=== PATIENT | female | born 1935 | race Caucasian/White ===

== ENCOUNTER 2019-09-25 16:36 | Emergency (ER) | payer MEDICAID, SELFPAY | END 2019-09-25 20:52 | disposition admitted as inpatient to this hospital (09) | LOC: ER 10-20 15:43 | PROVIDERS: Emergency Provider Emergency Medicine; Family Provider Nurse Practitioner; PCP Nurse Practitioner | DX: J96.90 Respiratory failure, unspecified, unspecified whether with hypoxia or hypercapnia (principal); R41.82 Altered mental status, unspecified; E03.5 Myxedema coma; I50.9 Heart failure, unspecified; R00.1 Bradycardia, unspecified; I11.0 Hypertensive heart disease with heart failure; E03.9 Hypothyroidism, unspecified | CPT/HCPCS: 12345; 36415; 36416; 36600; 51702; 70450; 71045; 74176; 80053; 80307; 81001; 82009; 82140; 82550; 82803; 82962; 83605; 83735; 83880; 84443; 84484; 85025; 85610; 86850; 86900; 86920; 87040; 87077; 87086; 87186; 87804; 93005; 94002; 94799; 96365; 96366; 96367; 96375; 99284; 99291; J2543; J7030 ==

== ENCOUNTER 2019-09-25 16:36 | Inpatient (IN) | payer MEDICAID, SELFPAY ==
[2019-09-25] VITALS (38 sets, daily range): BP systolic 78–224; BP diastolic 49–102; PULSE 52–66; RESP 0–21; TEMP 33.4–34.9; O2SAT 89–100; BMI 39.8
--- NOTE | 2019-09-25 16:38 | ECG_ITS ---
Measurements Intervals [place] Rate: 59 P: 107 IN: 184 QRS: 18 QRSD: 106 T: 48 QT: 431 QTc: 429 SINUS BRADYCARDIA No previous ECG available for comparison Electronically Signed On 09-25-2019 17:00:07 [email or web address] by Elias Lomax M.D. [email or web address]
--- NOTE | 2019-09-25 16:38 | ED_ITS ---
Entered by Virgie Camarillo, acting as scribe for HPI - SOB/Dyspnea General: Chief Complaint: Shortness of Breath/Dyspnea Stated Complaint: resp distress Time Seen by Provider: 09/25/19 16:37 Source: EMS Mode of arrival: EMS Limitations: altered mental status History of Present Illness: HPI Narrative: 84 yo Female presents to ED with complaint of respiratory distress. Per EMS, when they arrived to the patient's home, the family reported that the patient has become increasingly short of breath and has had decreased mental status. Family reported to EMS that the patient has a history of CHF but not any other pulmonary history. Per EMS, patient's oxygen saturation was in the 70s on their arrival. EMS reports they were able to get the patient's oxygen saturation up into the 80s with breathing treatments but then the patient became apneic. EMS states that the patient was then intubated and her oxygen saturation came up to 94%. Pt is unresponsive and intubated in the ED upon her arrival. Pt's sister states that patient had polio as a kid, she broke her knee cap several years ago, has hypertension and takes medication for it, never had heart attack, angioplasty, or cardiac stents. Pt's sister states that the patient was feeling good yesterday, but today the patient started having increased difficulty breathing and started having decreased responsiveness. Pt's sister states that patient wouldn't want to be intubated shelter. Pt's family is agreeable to allowing treatment for a few days and then re-evaluation of treatment plan. MD elicited complaint: shortness of breath Pertinent past history: congestive heart failure Onset (ago): unknown Timing: progressively worsening Known history of: congestive heart failure Review of Systems General: Reports: ROS unobtainable due to medical condition and ROS unobtainable due to mental status Resp: Reports: shortness of breath and other (intubated) [facility] ED PFSH: Medical History (Updated 09/25/19 @ 21:12 by Kristan Kelly) CHF (congestive heart failure) HTN (hypertension) Hypothyroidism Immobility Surgical History (Updated 09/25/19 @ 20:52 by Gennaro Palumbo MD) H/O knee surgery Family History (Updated 09/25/19 @ 20:54 by Gennaro Palumbo MD) Denies family history of CAD (coronary artery disease) Bleeding disorder Social History (Updated 09/25/19 @ 20:54 by Gennaro Palumbo MD) Smoking and tobacco status: never smoked Alcohol intake: never Substance/Drug Use: never Household members: family Physical Exam Const: COMMON NORMALS: no limitations, healthy appearing and well nourished; apparent distress and negative for oriented x3 EXAM LIMITATIONS: altered mental status GENERAL APPEARANCE: in distress (respiratory distress), lethargic and patient mechanically ventilated NUTRITIONAL APPEARANCE: obese ORIENTATION/CONSCIOUSNESS: Yes lethargic HENMT: COMMON NORMALS: normocephalic, head/scalp atraumatic, hearing grossly normal bilaterally, external ears normal, EAC's normal, external nose normal and moist oral mucous membranes HEAD & SCALP: normal to inspection, normocephalic and atraumatic FACE & SINUS: normal facial exam and face symmetric NOSE: external nose normal and nares normal EXTERNAL EAR: Yes external ears normal EXTERNAL AUDITORY CANAL: EAC's normal MOUTH: oral and palatal mucosa normal and tongue normal Eye: COMMON NORMALS: PERRL, EOMs intact bilaterally, conjunctivae normal and no scleral icterus GENERAL EYE: normal appearance of both eyes and normal light reflex CONJUNCTIVA: Yes conjunctivae normal SCLERA: sclerae normal CORNEA: Yes corneas normal PUPIL: Yes PERRL DIRECT OPHTHALMOSCOPY: Yes normal light reflex Neck/C-Spine: COMMON NORMALS: full ROM, no lymphadenopathy, supple, no meningeal signs and no JVD GENERAL: Yes normal visual inspection and Yes trachea midline CERVICAL SPINE: Yes cervical ROM normal Chest: COMMONS NORMALS: inspection of chest normal and palpation of chest normal Resp: COMMON NORMALS: normal respiratory effort, no retractions, no use of accessory muscles and clear to auscultation bilaterally EFFORT & INSPECTION: Yes respiratory distress AUSCULTATION: clear to auscultation bilaterally Cardio: COMMON NORMALS: no JVD, regular rate, regular rhythm, S1 normal heart sound, S2 normal heart sound, no gallops, no clicks, no murmurs and no rub JUGULAR VENOUS DISTENTION: no JVD RATE: regular rate RHYTHM: regular rhythm HEART SOUNDS: S1 normal and S2 normal GI: COMMON NORMALS: soft to palpation, non-tender, no hepatosplenomegaly and no masses INSPECTION: Yes normal to inspection PALPATION: Yes soft and Yes no hepatosplenomegaly : COMMON NORMALS: Yes no CVA tenderness BLADDER/KIDNEY EXAM: Yes no CVA tenderness Back/Pelvis: COMMON NORMALS: no CVA tenderness, thoracic and lumbar spine normal to inspection, no thoracic nor lumbar tenderness and thoraco-lumbar ROM normal Extremity: COMMON NORMALS: normal to inspection, full ROM, normal capillary refill, no joint enlargement, no clubbing, cyanosis or edema and no calf tenderness Neuro: COMMON NORMALS: CN's II-XII intact bilaterally, moves all extremities, no focal motor deficits and no sensory deficits noted; negative for oriented x3 SENSORIUM/ORIENTATION: Yes lethargic MENINGEAL S IGNS: Yes no meningeal signs Psych: COMMON NORMALS: mental status grossly normal, thought process normal, cooperative, affect normal, speech normal and activity/motor behavior normal SPEECH: Yes normal speech THOUGHT PROCESS: normal thought process Skin: COMMON NORMALS: no rashes or lesions noted, skin turgor normal, no jaundice, no petechiae and no mottling GENERAL SKIN EXAM: no rashes or lesions noted and turgor normal Course Vital Signs: Vital signs: Vital Signs Temperature 92.2 F L 09/25/19 20:56 Pulse Rate 56 L 09/25/19 20:56 Respiratory Rate 16 09/25/19 20:56 Blood Pressure 137/77 09/25/19 20:56 Pulse Oximetry 92 09/25/19 20:56 MDM - SOB/Dyspnea MDM Narrative: Medical decision making narrative: Ms. Parada is an 84-year-old female who arrived intubated after EMS found her to be apneic at times. Her Sister Liam coy has arrived and was unable to provide much more history other than the patient has a history of polio and hypertension. She believes she was fine and in her normal state of health yesterday. Today she reports the patient wanted to sleep more and was lethargic and was having difficulty breathing. The patient lives with her other sister but the sister who is here was able to give this report. Patient is hypothermic and appears to have a GI bleed. We will transfuse her with 2 units of packed red cells here. I have covered her for sepsis with antibiotics and we are continuing to give her warmed IV fluids to help with her hypothermia and hypernatremia. I believe the patient's prognosis is poor but at this time the family did want to do everything although they will discuss this as they do not think she would want to be on the ventilator for prolonged period of time. The case was discussed with Dr. Palumbo and he is agreeable to admission to the ICU. Lab Data: Attestation: I reviewed the patient's lab results. Labs: Lab Results 09/25/19 09/25/19 09/25/19 Range/Units 16:57 16:57 16:57 WBC 6.7 (4.0-10.0) 10^3/ uL RBC 2.92 L (4.1-5.3) 10^6/u L Hgb 7.3 L (11.5-15.3) g/dL Hct 27.7 L (37.0-47.0) % MCV 94.9 (81-99) fL MCH 25.0 L (28.0-34.0) pg MCHC 26.4 L (30.0-36.0) g/dL RDW 17.1 H (12.1-15.1) % Plt Count 121 L (130-400) 10^3/c mm MPV 12.9 H (7.4-10.4) fL Neut % (Auto) 89.0 % Lymph % (Auto) 7.2 % [place] % (Auto) 3.3 % Eos % (Auto) 0.0 % Baso % (Auto) 0.1 % Neut # (Auto) 6.0 (1.8-7.7) 10^3/u L Lymph # (Auto) 0.5 L (0.8-4.8) 10^3/u L [place] # (Auto) 0.2 (0.2-0.9) 10^3/u L Eos # (Auto) 0.0 (0.0-0.8) 10^3/u L Baso # (Auto) 0.0 (0.0-0.1) 10^3/u L Nucleated RBC % (a uto) 0.3 % Nucleated RBCs # 0.0 /100WBC PT 15.70 H (10.5-13.3) SECO NDS INR 1.21 H (0.8-1.2) Specimen Type Sample Site ABG pH (7.35-7.45) ABG pCO2 (35-45) mmHg ABG pO2 (80.0-100.0) mmH g ABG HCO3 (22-26) mmol/L ABG Base Excess (-2.0-2.0) mmol/ L Ricardo Test Hematocrit (37-47) % Respiration Rate % O2 Delivery Device Mechanical Rate FiO2 % Tidal Volume PEEP cmH20 Bulk Sugar Handler ID Sodium 150 H (136-145) mmol/L Potassium 4.6 (3.5-5.1) mmol/L Chloride 113 H (98-107) mmol/L Carbon Dioxide 24 (22-29) mmol/L Anion Gap 17.6 (5-19) BUN 48 H (8-23) mg/dL Creatinine 1.9 H (0.5-0.9) mg/dL Glucose 125 H (65-115) mg/dL Lactic Acid (0.5-2.2) mmol/L Calcium 8.6 (8.5-10.5) mg/dL Magnesium 2.6 H (1.7-2.3) mg/dL Total Bilirubin 0.2 (0.15-1.2) mg/dL AST 17 (0-32) U/L ALT 15 (0-33) U/L Alkaline Phosphata se 96 (35-105) IU/L Ammonia (11-51) umol/L Creatine Kinase (26-192) U/L Troponin T Baselin e (0-10) ng/mL Troponin T 120 Min squaxin (0-10) ng/mL Delta Troponin T (0-10) ABS# NT-Pro-B Natriuret Pep 2259 H (0-450) pg/mL Total Protein 4.9 L (6.6-8.7) g/dL Albumin 2.6 L (3.5-5.2) g/dL Globulin 2.3 (1.3-4.6) g/dL TSH (0.27-4.20) uIU/ mL Urine Color (Yellow) Urine Appearance (CLEAR) Urine pH (5-7) Ur Specific Gravit y (1.005-1.030) Urine Protein (Negative) Urine Glucose (UA) (Normal) Urine Ketones (Negative) Urine Blood (Negative) Urine Nitrate (Negative) Urine Bilirubin (NEGATIVE) Urine Urobilinogen (Negative) mg/dL Ur Leukocyte Leandra ase (Negative) Urine RBC (0-2) /hpf Urine WBC (0-5) /hpf Ur Squamous Epith Cells (0-5) Urine Bacteria (NONE) Urine Mucus Ethyl Alcohol (0-10) mg/dL Serum Ketones (Negative) Influenza Type A A g (Negative) POC Influenza B Ag (Negative) Blood Type Rho(D) Type Antibody Screen Crossmatch 09/25/19 09/25/19 09/25/19 Range/Units 16:57 16:58 17:24 WBC (4.0-10.0) 10^3/ uL RBC (4.1-5.3) 10^6/u L Hgb (11.5-15.3) g/dL Hct (37.0-47.0) % MCV (81-99) fL MCH (28.0-34.0) pg MCHC (30.0-36.0) g/dL RDW (12.1-15.1) % Plt Count (130-400) 10^3/c mm MPV (7.4-10.4) fL Neut % (Auto) % Lymph % (Auto) % [place] % (Auto) % Eos % (Auto) % Baso % (Auto) % Neut # (Auto) (1.8-7.7) 10^3/u L Lymph # (Auto) (0.8-4.8) 10^3/u L [place] # (Auto) (0.2-0.9) 10^3/u L Eos # (Auto) (0.0-0.8) 10^3/u L Baso # (Auto) (0.0-0.1) 10^3/u L Nucleated RBC % (a uto) % Nucleated RBCs # /100WBC PT (10.5-13.3) SECO NDS INR (0.8-1.2) Specimen Type Sample Site ABG pH (7.35-7.45) ABG pCO2 (35-45) mmHg ABG pO2 (80.0-100.0) mmH g ABG HCO3 (22-26) mmol/L ABG Base Excess (-2.0-2.0) mmol/ L Ricardo Test Hematocrit (37-47) % Respiration Rate % O2 Delivery Device Mechanical Rate FiO2 % Tidal Volume PEEP cmH20 Bulk Sugar Handler ID Sodium (136-145) mmol/L Potassium (3.5-5.1) mmol/L Chloride (98-107) mmol/L Carbon Dioxide (22-29) mmol/L Anion Gap (5-19) BUN (8-23) mg/dL Creatinine (0.5-0.9) mg/dL Glucose (65-115) mg/dL Lactic Acid 1.1 (0.5-2.2) mmol/L Calcium (8.5-10.5) mg/dL Magnesium (1.7-2.3) mg/dL Total Bilirubin (0.15-1.2) mg/dL AST (0-32) U/L ALT (0-33) U/L Alkaline Phosphata se (35-105) IU/L Ammonia (11-51) umol/L Creatine Kinase (26-192) U/L Troponin T Baselin e 85 H (0-10) ng/mL Troponin T 120 Min squaxin (0-10) ng/mL Delta Troponin T (0-10) ABS# NT-Pro-B Natriuret Pep (0-450) pg/mL Total Protein (6.6-8.7) g/dL Albumin (3.5-5.2) g/dL Globulin (1.3-4.6) g/dL TSH (0.27-4.20) uIU/ mL Urine Color (Yellow) Urine Appearance (CLEAR) Urine pH (5-7) Ur Specific Gravit y (1.005-1.030) Urine Protein (Negative) Urine Glucose (UA) (Normal) Urine Ketones (Negative) Urine Blood (Negative) Urine Nitrate (Negative) Urine Bilirubin (NEGATIVE) Urine Urobilinogen (Negative) mg/dL Ur Leukocyte Leandra ase (Negative) Urine RBC (0-2) /hpf Urine WBC (0-5) /hpf Ur Squamous Epith Cells (0-5) Urine Bacteria (NONE) Urine Mucus Ethyl Alcohol (0-10) mg/dL Serum Ketones (Negative) Influenza Type A A g Negative (Negative) POC Influenza B Ag Negative (Negative) Blood Type Rho(D) Type Antibody Screen Crossmatch 09/25/19 09/25/19 09/25/19 Range/Units 17:24 17:29 18:41 WBC (4.0-10.0) 10^3/ uL RBC (4.1-5.3) 10^6/u L Hgb (11.5-15.3) g/dL Hct (37.0-47.0) % MCV (81-99) fL MCH (28.0-34.0) pg MCHC (30.0-36.0) g/dL RDW (12.1-15.1) % Plt Count (130-400) 10^3/c mm MPV (7.4-10.4) fL Neut % (Auto) % Lymph % (Auto) % [place] % (Auto) % Eos % (Auto) % Baso % (Auto) % Neut # (Auto) (1.8-7.7) 10^3/u L Lymph # (Auto) (0.8-4.8) 10^3/u L [place] # (Auto) (0.2-0.9) 10^3/u L Eos # (Auto) (0.0-0.8) 10^3/u L Baso # (Auto) (0.0-0.1) 10^3/u L Nucleated RBC % (a uto) % Nucleated RBCs # /100WBC PT (10.5-13.3) SECO NDS INR (0.8-1.2) Specimen Type Sample Site ABG pH (7.35-7.45) ABG pCO2 (35-45) mmHg ABG pO2 (80.0-100.0) mmH g ABG HCO3 (22-26) mmol/L ABG Base Excess (-2.0-2.0) mmol/ L Ricardo Test Hematocrit (37-47) % Respiration Rate % O2 Delivery Device Mechanical Rate FiO2 % Tidal Volume PEEP cmH20 Bulk Sugar Handler ID Sodium (136-145) mmol/L Potassium (3.5-5.1) mmol/L Chloride (98-107) mmol/L Carbon Dioxide (22-29) mmol/L Anion Gap (5-19) BUN (8-23) mg/dL Creatinine (0.5-0.9) mg/dL Glucose (65-115) mg/dL Lactic Acid (0.5-2.2) mmol/L Calcium (8.5-10.5) mg/dL Magnesium (1.7-2.3) mg/dL Total Bilirubin (0.15-1.2) mg/dL AST (0-32) U/L ALT (0-33) U/L Alkaline Phosphata se (35-105) IU/L Ammonia (11-51) umol/L Creatine Kinase (26-192) U/L Troponin T Baselin e (0-10) ng/mL Troponin T 120 Min squaxin 79.01 H (0-10) ng/mL Delta Troponin T -5.99 L (0-10) ABS# NT-Pro-B Natriuret Pep (0-450) pg/mL Total Protein (6.6-8.7) g/dL Albumin (3.5-5.2) g/dL Globulin (1.3-4.6) g/dL TSH (0.27-4.20) uIU/ mL Urine Color Yellow (Yellow) Urine Appearance Clear (CLEAR) Urine pH 5.0 (5-7) Ur Specific Gravit y 1.020 (1.005-1.030) Urine Protein Neg (Negative) Urine Glucose (UA) Norm (Normal) Urine Ketones Negative (Negative) Urine Blood Neg (Negative) Urine Nitrate Negative (Negative) Urine Bilirubin Neg (NEGATIVE) Urine Urobilinogen Norm (Negative) mg/dL Ur Leukocyte Leandra ase Negative (Negative) Urine RBC None (0-2) /hpf Urine WBC 0-4 H (0-5) /hpf Ur Squamous Epith Cells 0-4 H (0-5) Urine Bacteria 3+ H (NONE) Urine Mucus 1+ Ethyl Alcohol (0-10) mg/dL Serum Ketones (Negative) Influenza Type A A g (Negative) POC Influenza B Ag (Negative) Blood Type O Positive Rho(D) Type Positive Antibody Screen Negative Crossmatch See Detail 09/25/19 09/25/19 09/25/19 Range/Units 19:04 19:28 19:28 WBC (4.0-10.0) 10^3/ uL RBC (4.1-5.3) 10^6/u L Hgb (11.5-15.3) g/dL Hct (37.0-47.0) % MCV (81-99) fL MCH (28.0-34.0) pg MCHC (30.0-36.0) g/dL RDW (12.1-15.1) % Plt Count (130-400) 10^3/c mm MPV (7.4-10.4) fL Neut % (Auto) % Lymph % (Auto) % [place] % (Auto) % Eos % (Auto) % Baso % (Auto) % Neut # (Auto) (1.8-7.7) 10^3/u L Lymph # (Auto) (0.8-4.8) 10^3/u L [place] # (Auto) (0.2-0.9) 10^3/u L Eos # (Auto) (0.0-0.8) 10^3/u L Baso # (Auto) (0.0-0.1) 10^3/u L Nucleated RBC % (a uto) % Nucleated RBCs # /100WBC PT (10.5-13.3) SECO NDS INR (0.8-1.2) Specimen Type Arterial Sample Site Radial, right ABG pH 7.42 (7.35-7.45) ABG pCO2 32.7 L (35-45) mmHg ABG pO2 119.0 H (80.0-100.0) mmH g ABG HCO3 21.1 L (22-26) mmol/L ABG Base Excess -3.0 L (-2.0-2.0) mmol/ L Ricardo Test N/a Hematocrit 23.3 L (37-47) % Respiration Rate 16.0 % O2 Delivery Device Vent Mechanical Rate 16.0 FiO2 100.0 % Tidal Volume 0.4 PEEP 8.0 cmH20 Bulk Sugar Handler ID [email or web address] Sodium (136-145) mmol/L Potassium (3.5-5.1) mmol/L Chloride (98-107) mmol/L Carbon Dioxide (22-29) mmol/L Anion Gap (5-19) BUN (8-23) mg/dL Creatinine (0.5-0.9) mg/dL Glucose (65-115) mg/dL Lactic Acid (0.5-2.2) mmol/L Calcium (8.5-10.5) mg/dL Magnesium (1.7-2.3) mg/dL Total Bilirubin (0.15-1.2) mg/dL AST (0-32) U/L ALT (0-33) U/L Alkaline Phosphata se (35-105) IU/L Ammonia 10 L (11-51) umol/L Creatine Kinase (26-192) U/L Troponin T Baselin e (0-10) ng/mL Troponin T 120 Min squaxin (0-10) ng/mL Delta Troponin T (0-10) ABS# NT-Pro-B Natriuret Pep (0-450) pg/mL Total Protein (6.6-8.7) g/dL Albumin (3.5-5.2) g/dL Globulin (1.3-4.6) g/dL TSH (0.27-4.20) uIU/ mL Urine Color (Yellow) Urine Appearance (CLEAR) Urine pH (5-7) Ur Specific Gravit y (1.005-1.030) Urine Protein (Negative) Urine Glucose (UA) (Normal) Urine Ketones (Negative) Urine Blood (Negative) Urine Nitrate (Negative) Urine Bilirubin (NEGATIVE) Urine Urobilinogen (Negative) mg/dL Ur Leukocyte Leandra ase (Negative) Urine RBC (0-2) /hpf Urine WBC (0-5) /hpf Ur Squamous Epith Cells (0-5) Urine Bacteria (NONE) Urine Mucus Ethyl Alcohol (0-10) mg/dL Serum Ketones Negative (Negative) Influenza Type A A g (Negative) POC Influenza B Ag (Negative) Blood Type Rho(D) Type Antibody Screen Crossmatch 09/25/19 Range/Units 19:28 WBC (4.0-10.0) 10^3/ uL RBC (4.1-5.3) 10^6/u L Hgb (11.5-15.3) g/dL Hct (37.0-47.0) % MCV (81-99) fL MCH (28.0-34.0) pg MCHC (30.0-36.0) g/dL RDW (12.1-15.1) % Plt Count (130-400) 10^3/c mm MPV (7.4-10.4) fL Neut % (Auto) % Lymph % (Auto) % [place] % (Auto) % Eos % (Auto) % Baso % (Auto) % Neut # (Auto) (1.8-7.7) 10^3/u L Lymph # (Auto) (0.8-4.8) 10^3/u L [place] # (Auto) (0.2-0.9) 10^3/u L Eos # (Auto) (0.0-0.8) 10^3/u L Baso # (Auto) (0.0-0.1) 10^3/u L Nucleated RBC % (a uto) % Nucleated RBCs # /100WBC PT (10.5-13.3) SECO NDS INR (0.8-1.2) Specimen Type Sample Site ABG pH (7.35-7.45) ABG pCO2 (35-45) mmHg ABG pO2 (80.0-100.0) mmH g ABG HCO3 (22-26) mmol/L ABG Base Excess (-2.0-2.0) mmol/ L Ricardo Test Hematocrit (37-47) % Respiration Rate % O2 Delivery Device Mechanical Rate FiO2 % Tidal Volume PEEP cmH20 Bulk Sugar Handler ID Sodium (136-145) mmol/L Potassium (3.5-5.1) mmol/L Chloride (98-107) mmol/L Carbon Dioxide (22-29) mmol/L Anion Gap (5-19) BUN (8-23) mg/dL Creatinine (0.5-0.9) mg/dL Glucose (65-115) mg/dL Lactic Acid (0.5-2.2) mmol/L Calcium (8.5-10.5) mg/dL Magnesium (1.7-2.3) mg/dL Total Bilirubin (0.15-1.2) mg/dL AST (0-32) U/L ALT (0-33) U/L Alkaline Phosphata se (35-105) IU/L Ammonia (11-51) umol/L Creatine Kinase 27 (26-192) U/L Troponin T Baselin e (0-10) ng/mL Troponin T 120 Min squaxin (0-10) ng/mL Delta Troponin T (0-10) ABS# NT-Pro-B Natriuret Pep (0-450) pg/mL Total Protein (6.6-8.7) g/dL Albumin (3.5-5.2) g/dL Globulin (1.3-4.6) g/dL TSH 8.84 H (0.27-4.20) uIU/ mL Urine Color (Yellow) Urine Appearance (CLEAR) Urine pH (5-7) Ur Specific Gravit y (1.005-1.030) Urine Protein (Negative) Urine Glucose (UA) (Normal) Urine Ketones (Negative) Urine Blood (Negative) Urine Nitrate (Negative) Urine Bilirubin (NEGATIVE) Urine Urobilinogen (Negative) mg/dL Ur Leukocyte Leandra ase (Negative) Urine RBC (0-2) /hpf Urine WBC (0-5) /hpf Ur Squamous Epith Cells (0-5) Urine Bacteria (NONE) Urine Mucus Ethyl Alcohol < 10 (0-10) mg/dL Serum Ketones (Negative) Influenza Type A A g (Negative) POC Influenza B Ag (Negative) Blood Type Rho(D) Type Antibody Screen Crossmatch Imaging Data^: CXR: Radiologist's impression: [place] [address] XRay Report Signed Patient: Merari Parada #: [id number] : 1935cct#:[id number] Age/Sex: 84 / FADM Date: 09/25/19 Loc: ERRoom/Bed: Attending Dr: Ordering Provider/Ordering MD: Kristan Kelly DO Date of Service: 09/25/19 Procedure(s): XR chest 1V portable [id number] Accession Number(s): [id number] Report Number: [id number] WS: [id number] XR chest 1V portable [id number] REASON FOR EXAM: cough FINDINGS: Endotracheal tube remains in good position. This is above the priya. There is mild thickening in the minor fissure on the right. In the left lower lung there appears to be interstitial thickening suggesting inflammatory changes. There is a small amount of right pleural effusion obliterating the costophrenic angle. There is borderline cardiomegaly with arteriosclerotic changes. Both shoulders show severe degenerated changes. XR/XR chest 1V portable [id number] IMPRESSION: Borderline cardiomegaly Infiltrate left lung base Endotracheal tube adequately positioned. Mild thickening of the minor fissure suggesting small amount of effusion. Small amount of right pleural effusion. Dictated By:Roosevelt Calixot DO Signed By:Roosevelt Calixto DOSigned Date/Time:09/25/191655 DD/ 54 CT Abd/Pel: Radiologist's impression: [place] [address] CT Scan Report Signed Patient: Merari Parada #: [id number] : 7Acct#:[id number] Age/Sex: 84 / FADM Date: 09/25/19 Loc: ERRoom/Bed: Attending Dr: Ordering Provider/Ordering MD: Kristan Kelly DO Date of Service: 09/25/19 Procedure(s): CT abdomen pelvis [facility] [address] Accession Number(s): [id number] Report Number: [id number] PROCEDURE INFORMATION: Exam: CT Abdomen And Pelvis Without Contrast Exam date and time: 09/25/2019 6:15 PM Age: 84 years old Clinical indication: Abdominal pain TECHNIQUE: Imaging protocol: Computed tomography of the abdomen and pelvis without contrast. Total DLP: 1223 mGy-cm Radiation optimization: All CT scans at this facility use at least one of these dose optimization techniques: automated exposure control; mA and/or kV adjustment per patient size (includes targeted exams where dose is matched to clinical indication); or iterative reconstruction. COMPARISON: No relevant prior studies available. FINDINGS: Lungs: Bibasilar subsegmental alveolar airspace disease with air bronchograms. This could reflect atelectasis, pneumonia, and/or focal edema. Pleural space: Bilateral small volume pleural effusion. Heart: Cardiomegaly. Calcific mitral annulus. Coronary artery disease. Liver: Liver with a calcified granuloma. Liver otherwise unremarkable for age. Gallbladder and bile ducts: Gallbladder free of cholelithiasis. No intra or extrahepatic biliary ectasia identified. Pancreas: Pancreas unremarkable for age. No visible pancreatic ductal ectasia. Spleen: Normal. No splenomegaly. Adrenals: Adrenal glands, as imaged, grossly unremarkable. Kidneys and ureters: Kidneys unremarkable for age. No hydronephrosis or perinephric fluid visible. Mild perinephric stranding which is nonspecific finding. Stomach and bowel: Nonobstructive bowel pattern. No evidence for significant diverticulosis coli or diverticulitis. No evidence for adynamic or reactive ileus. Nasogastric tube tip body of the stomach. No evidence of appendicitis. Appendix: No evidence of appendicitis. Intraperitoneal space: No ascites. No free fluid the pelvis. No visible pneumoperitoneum. Vasculature: The abdominal aorta is nonaneurysmal. Moderately advanced arterial sclerotic disease. Lymph nodes: Unremarkable. No enlarged lymph nodes. Bladder: Luna catheter within the urinary bladder. Bladder is decompressed. Reproductive: Unremarkable as visualized for age. Bones/joints: Advanced degenerative disease and degenerative disc disease of the distal thoracic and lumbosacral spine. Old compression deformity L3. Osteoporosis. Facet arthrosis. Soft tissues: Unremarkable. Other findings: Limited diagnostic quality. CT/CT abdomen pelvis wo con [id number] IMPRESSION: 1. Bibasilar subsegmental alveolar airspace disease with air bronchograms. 2. Bilateral small pleural effusions. 3. Cardiomegaly with coronary artery disease. 4. No definitive visible evidence of active or acute abdominal or pelvic pathologic process. 5. Nasogastric tube and Luna catheter. 6. Numerous non urgent, nonemergent, chronic, and age related findings discussed in text above. Radiation Dose CTDIVOL = (mGy): DLP = 1223 (mGy-cm) Dictated By:Dl Paige Signed By:Ivon Paige Date/Time:09/25/191855 DD/ 54 CT Head: Radiologist's impression: [place] [address] CT Scan Report Signed Patient: Merari Parada #: [id number] : [id number]#:[id number] Age/Sex: 84 / FADM Date: 09/25/19 Loc: ERRoom/Bed: Attending Dr: Ordering Provider/Ordering MD: Kristan Kelly DO Date of Service: 09/25/19 Procedure(s): CT head wo con* 25930 Accession Number(s): [id number] Report Number: [id number] PROCEDURE INFORMATION: Exam: CT Head Without Contrast Exam date and time: 09/25/2019 4:45 PM Age: 84 years old Clinical indication: Pain; Headache; Additional info: Morales/ams TECHNIQUE: Imaging protocol: Computed tomography of the head without contrast. Total DLP: 764.74 mGy-cm Radiation optimization: All CT scans at this facility use at least one of these dose optimization techniques: automated exposure control; mA and/or kV adjustment per patient size (includes targeted exams where dose is matched to clinical indication); or iterative reconstruction. COMPARISON: No relevant prior studies available. FINDINGS: Brain: No visible evidence of acute intracranial pathologic process. 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 Cerebral and cerebellar atrophy with ventricular dilatation greater than that anticipated for patient's chronological age. Ventricles: Normal. No ventriculomegaly. Bones/joints: Unremarkable. No acute fracture. Sinuses: Visualized sinuses are unremarkable. No fluid levels. Mastoid air cells: Visualized mastoid air cells are well aerated. Soft tissues: Unremarkable. Vasculature: Cerebral arterial sclerosis. CT/CT head wo con* [id number] IMPRESSION: 1. No visible evidence of active or acute intracranial pathologic process. 2. Small vessel ischemic disease. 3. Atrophic changes. Aspects score 10. Radiation Dose CTDIVOL = (mGy): DLP = 764.74 (mGy-cm) Dictated By:Dl Paige Signed By:Dl PaigeSileia Date/Time:09/25/191857 DD/ 56 EKG Data^: EKG 1: Attestation: I personally reviewed and interpreted this EKG as follows: EKG Interpretation Date: 09/25/19 EKG interpretation time: 16:46 Interpretation: Normal sinus rhythm at 59 beats a minute, nonspecific ST and T wave changes, normal axis. No old for comparison EKG 2: Attestation: I personally reviewed and interpreted this EKG as follows: EKG Interpretation Date: 09/25/19 EKG interpretation time: 19:12 Interpretation: Normal sinus rhythm at 56 beats a minute, nonspecific ST-T wave changes. Unchanged from previous. Critical Care Time Critical Care Time: Critical Care Time: Yes Total Critical Care Time: 30 Attestation: Critical care time consisted of discussion with family, repeated re-evaluations of the patient's. Reveal laboratory abnormalities. Management of hypothermia as well as ventilator and blood gas interpretation. Discharge Plan Discharge Patient Disposition: Admitted As Inpatient Admit Provider: Gennaro Palumbo Clinical Impression: Altered mental status, Respiratory failure, Myxedema coma, CHF (congestive heart failure), Bradycardia Condition: Stable Interventions: ED Discharge Assessment Last Done: 09/25/19 20:56 Discharge Date/Time: 09/25/19 20:52 Coding Level of Care Code ED Medicaid Billing Specialist for Chg Fwd Exam Comprehensive The documentation recorded by the Marquise ojeda Carmen, accurately reflects the service I personally performed and the decisions made by me, Kristan Kelly Sep 25, 2019 16:36
[2019-09-25 17:09] LABS: Basophils % 0.1 %; Hematocrit 27.7 % (37.0-47.0); Hemoglobin 7.3 g/dL (11.5-15.3); Lymphocytes # 0.5 10^3/uL (0.8-4.8); Lymphocytes % 7.2 %; Mean Corpuscular HGB Conc 26.4 g/dL (30.0-36.0); Mean Corpuscular Volume 94.9 fL (81-99); Mean Platelet Volume 12.9 fL (7.4-10.4); Monocytes # 0.2 10^3/uL (0.2-0.9); Monocytes % 3.3 %; Nucleated Red Blood Cells % 0.3 %; Platelet Count 121 10^3/cmm (130-400); Red Blood Count 2.92 10^6/uL (4.1-5.3); Red Cell Distribution Width 17.1 % (12.1-15.1); White Blood Count 6.7 10^3/uL (4.0-10.0)
[2019-09-25 17:20] LABS: INR 1.21 (0.8-1.2)
[2019-09-25 17:26] LABS: Lactic Sepsis W/Reflex 1.1 mmol/L (0.5-2.2)
[2019-09-25 17:34] LABS: Troponin(5th) Baseline 85 ng/mL (0-10)
[2019-09-25 17:43] LABS: Alanine Aminotransferase 15 U/L (0-33); Albumin Level 2.6 g/dL (3.5-5.2); Alkaline Phosphatase 96 IU/L (35-105); Anion Gap 17.6 (5-19); Aspartate Amino Transferase 17 U/L (0-32); Blood Urea Nitrogen 48 mg/dL (8-23); Calcium 8.6 mg/dL (8.5-10.5); Carbon Dioxide 24 mmol/L (22-29); Chloride 113 mmol/L (98-107); Globulin 2.3 g/dL (1.3-4.6); Glucose 125 mg/dL (65-115); Magnesium 2.6 mg/dL (1.7-2.3); NT Pro B Type Natriuretic Pept 2259 pg/mL (0-450); Potassium 4.6 mmol/L (3.5-5.1); Sodium 150 mmol/L (136-145); Total Bilirubin 0.2 mg/dL (0.15-1.2); Total Protein 4.9 g/dL (6.6-8.7)
[2019-09-25] MEDS: piperacillin-tazobactam 3.375 GM in sodium chloride 0.9% (plus) 50 ML IV (17:53)
[2019-09-25 18:02] LABS: Bilirubin Urine Neg (NEGATIVE); Blood Urine Neg (Negative); Glucose Urine UA Norm (Normal); Ketones Urine Negative (Negative); Leukocyte Esterase Urine Negative (Negative); Nitrate Urine Negative (Negative); Protein Urine Neg (Negative); Urine Appearance Clear (CLEAR); Urine Color Yellow (Yellow); Urobilinogen Urine Norm (Negative)
[2019-09-25 18:08] LABS: Add Urine Culture? Yes; Bacteria Urine 3+; Mucus Urine 1+; Squamous Epithelial Cell Urine 0-4 (0-5); WBC Urine 0-4 /hpf (0-5)
--- NOTE | 2019-09-25 18:14 | CTR_ITS ---
PROCEDURE INFORMATION: Exam: CT Abdomen And Pelvis Without Contrast Exam date and time: 09/25/2019 6:15 PM Age: 84 years old Clinical indication: Abdominal pain TECHNIQUE: Imaging protocol: Computed tomography of the abdomen and pelvis without contrast. Total DLP: 1223 mGy-cm Radiation optimization: All CT scans at this facility use at least one of these dose optimization techniques: automated exposure control; mA and/or kV adjustment per patient size (includes targeted exams where dose is matched to clinical indication); or iterative reconstruction. COMPARISON: No relevant prior studies available. FINDINGS: Lungs: Bibasilar subsegmental alveolar airspace disease with air bronchograms. This could reflect atelectasis, pneumonia, and/or focal edema. Pleural space: Bilateral small volume pleural effusion. Heart: Cardiomegaly. Calcific mitral annulus. Coronary artery disease. Liver: Liver with a calcified granuloma. Liver otherwise unremarkable for age. Gallbladder and bile ducts: Gallbladder free of cholelithiasis. No intra or extrahepatic biliary ectasia identified. Pancreas: Pancreas unremarkable for age. No visible pancreatic ductal ectasia. Spleen: Normal. No splenomegaly. Adrenals: Adrenal glands, as imaged, grossly unremarkable. Kidneys and ureters: Kidneys unremarkable for age. No hydronephrosis or perinephric fluid visible. Mild perinephric stranding which is nonspecific finding. Stomach and bowel: Nonobstructive bowel pattern. No evidence for significant diverticulosis coli or diverticulitis. No evidence for adynamic or reactive ileus. Nasogastric tube tip body of the stomach. No evidence of appendicitis. Appendix: No evidence of appendicitis. Intraperitoneal space: No ascites. No free fluid the pelvis. No visible pneumoperitoneum. Vasculature: The abdominal aorta is nonaneurysmal. Moderately advanced arterial sclerotic disease. Lymph nodes: Unremarkable. No enlarged lymph nodes. Bladder: Luna catheter within the urinary bladder. Bladder is decompressed. Reproductive: Unremarkable as visualized for age. Bones/joints: Advanced degenerative disease and degenerative disc disease of the distal thoracic and lumbosacral spine. Old compression deformity L3. Osteoporosis. Facet arthrosis. Soft tissues: Unremarkable. Other findings: Limited diagnostic quality. CT/CT abdomen pelvis wo con [id number] IMPRESSION: 1. Bibasilar subsegmental alveolar airspace disease with air bronchograms. 2. Bilateral small pleural effusions. 3. Cardiomegaly with coronary artery disease. 4. No definitive visible evidence of active or acute abdominal or pelvic pathologic process. 5. Nasogastric tube and Luna catheter. 6. Numerous non urgent, nonemergent, chronic, and age related findings discussed in text above. Radiation Dose CTDIVOL = (mGy): DLP = 1223 (mGy-cm)
[2019-09-25 18:18] LABS: Influenza A by IFA Negative (Negative); Influenza B by IFA Negative (Negative)
--- NOTE | 2019-09-25 18:38 | ECG_ITS ---
Measurements Intervals [place] Rate: 56 P: 43 UT: 185 QRS: 31 QRSD: 97 T: -33 QT: 417 QTc: 405 SINUS BRADYCARDIA NONSPECIFIC T-WAVE ABNORMALITY Compared to ECG 09/25/2019 16:46:10 T-wave abnormality now present Electronically Signed On 09-26-2019 15:40:02 BOARD SAW RUNNER by Latasha Singh M.D. [id number]
--- NOTE | 2019-09-25 18:47 | PC.NURSE ---
patients temp remains at 91.1 placed on bearhugger. patient returned from ct
[2019-09-25 19:08] LABS: Troponin 5 2HR 79.01 ng/mL (0-10)
[2019-09-25 19:09] LABS: Troponin 5 2HR Delta -5.99 ABS# (0-10)
[2019-09-25 19:15] LABS: ABG PCO2 32.7 mmHg (35-45); ABG PH Result 7.42 (7.35-7.45); Arterial Blood Gas Hematocrit 23.3 % (37-47); Blood Gas Sample Site Radial, right; Blood Gas Sample Type Arterial; Blood Gas Tidal Volume 0.4; HCO3 ABG 21.1 mmol/L (22-26); Oxygen Device VENT
[2019-09-25 19:53] LABS: Ammonia 10 umol/L (11-51)
[2019-09-25 20:02] LABS: Creatine Phosphokinase 27 U/L (26-192); Thyroid Stimulating Hormone 8.84 uIU/mL (0.27-4.20)
[2019-09-25 20:03] LABS: Alcohol Level < 10 mg/dL (0-10); Ketone (Acetest) Serum Negative (Negative)
--- NOTE | 2019-09-25 20:44 | PM.HP ---
Providers/Chief Complaint Admitting Physician: Gennaro Palumbo MD Primary Care Provider: DELMAR Smith-Liliana Chief Complaint: resp distress History of Present Illness Merari Parada is a 84 year old female who was brought in by the family for chief complaint of shortness of breath, altered mental status. She lives with her younger sister, as per the family she was in her usual state of health until today when she seemed confused and was struggling to breathe at that time EMS was called, because of her respiratory distress she was intubated with ketamine and rocuronium. She was hypothermic temperature 92, sinus bradycardic heart rate 56, hypotensive,. Diagnostics in ER showed hyper natremia, hypotension, hypothermia, normal white count, EKG showed sinus bradycardia, she was given 1 L normal saline bolus that improved her blood pressure, I requested stat TSH level which came back high, considering her signs and symptoms decision was made to treat as myxedema coma, levothyroxine 100 mcg IV, stress dose steroid 100 mg hydrocortisone every 8 hours, T4 and cortisol level to be checked. She also has a purulent cellulitis of right lower extremity. I have talked with her sister Ms. Liam Adams phone #[phone] She is endorsing that she has not been compliant with her medications, she stopped taking her thyroid medications, she was told that she has congestive heart failure. She has been wheelchair-bound for the last couple of months because of bad knees after knee surgery she has not been able to walk on her own, she could not use crutches, Review of Systems General: Reports: ROS unobtainable due to endotracheal tube Medications/Allergies Home Medications Medication Instructions Recorded Confirmed Last Taken Type Dandelion Root 1 tab PO DAILY 09/25/19 09/25/19 Unknown History Vitamin C 1 tab PO DAILY 09/25/19 09/25/19 Unknown History atorvastatin See Rx Instructions .ROUTE .COMPLEX 09/25/19 09/25/19 Unknown History baclofen 10 mg PO BID 09/25/19 09/25/19 Unknown History docusate sodium [DOK] 100 mg PO DAILY PRN 09/25/19 09/25/19 Unknown History furosemide 20 mg PO BID 09/25/19 09/25/19 Unknown History lisinopril 40 mg PO DAILY 09/25/19 09/25/19 09/25/19 History metoprolol tartrate 25 mg PO BID 09/25/19 09/25/19 09/25/19 History potassium chloride 10 meq PO DAILY 09/25/19 09/25/19 09/25/19 History PFSH Acute PFSH: Medical History (Updated 09/25/19 @ 20:52 by Gennaro Palumbo MD) CHF (congestive heart failure) HTN (hypertension) Hypothyroidism Immobility Surgical History (Updated 09/25/19 @ 20:52 by Gennaro Palumbo MD) H/O knee surgery Family History (Updated 09/25/19 @ 20:54 by Gennaro Palumbo MD) Denies family history of CAD (coronary artery disease) Bleeding disorder Social History (Updated 09/25/19 @ 20:54 by Gennaro Palumbo MD) Smoking and tobacco status: never smoked Alcohol intake: never Substance/Drug Use: never Household members: family Vitals/I&O/Wt Last Vital Signs Temp 92.2 F L 09/25/19 20:26 Pulse 55 L 09/25/19 20:26 Resp 16 09/25/19 20:26 BP 137/77 09/25/19 20:26 Pulse Ox 89 L 09/25/19 20:26 09/25/19 09/25/19 09/25/19 06:59 14:59 22:59 Intake Total 3061.74 / 3061.74 Balance 3061.74 / 3061.74 Weight last 48 hrs Weight 102.058 kg Physical Exam Narrative: EXAM NARRATIVE: Cushingoid appearance Macroglossia Pitting edema starting from her legs extending up to her abdominal wall 3+ pitting edema Right lower extremity actively weeping wound with hyperemic border, dressing is soaked with purulent material Sinus bradycardia heart rate in 60s Current blood pressure 113 Intubated and sedated, riding the vent, FiO2 70%, PEEP 8 Swollen arms and legs, swollen eyelids No scar cirilo of thyroidectomy Visual obesity, bloated abdomen Hard to assess her JVD Neurological exam limited because of intubation Urinary Catheter Management^: Luna: Cath Placed During This Visit: yes Urinary Catheter Date of Insertion: 09/25/19 Urinary Catheter Time of Insertion: 17:11 Data : 09/25/19 16:57 09/25/19 16:57 Micro: Microbiology 09/25/19 16:51 Blood Culture - Preliminary Blood SPECIMEN COLLECTED 09/25/19 16:45 Blood Culture - Preliminary Blood SPECIMEN COLLECTED A&P Assessment and plan (1) Myxedema coma: Status: Acute Code(s): E03.5 - Myxedema coma (2) Respiratory failure: Status: Acute Code(s): J96.90 - Respiratory failure, unspecified, unspecified whether with hypoxia or hypercapnia (3) Altered mental status: Status: Acute Code(s): R41.82 - Altered mental status, unspecified (4) CHF (congestive heart failure): Status: Acute Code(s): I50.9 - Heart failure, unspecified (5) Bradycardia: Status: Acute Code(s): R00.1 - Bradycardia, unspecified Additional A&P Information Myxedema coma I believe inciting event is lower GI bleed Clinical signs of sinus bradycardia, hypo-thermia, hypotension, respiratory distress, altered mental status, Blood glucose normal, TSH is 8, will check cortisol and free T4 level IV levothyroxine 100 mcg x 1 with subsequent 50 mcg dose starting tomorrow Stress dose steroids hydrocortisone 100 mg every 8 D5 half-normal fluid with sodium every 4 hour check Congestive heart failure exacerbation due to hypothyroidism We will check echo, extremely high BNP Cannot use Lasix for now because of hypotension No previous echo report Acute blood loss normocytic anemia Previous hemoglobin was around 13 current hemoglobin 7, FOBT positive dark-colored stool I have consulted Dr. Rascon, will monitor H&H, will start Protonix drip will give her 2 units of PRBC Lactic acid 1.1 CT abdomen did not show any signs of ischemic colitis but definitive diagnosis was made on colonoscopy Right lower leg purulent cellulitis I would start vancomycin and Zosyn, no leukocytosis Full code No need of anticoagulation for DVT prophylaxis: We will use SCDs For details regarding medical history please call primary care physician in the morning, I have talked with her sister who is endorsing that she stopped taking her thyroid medication because she thought she is not needing it anymore however review of previous records shows her TSH has been abnormal it was 7.8 and then 5.4, she was told that she has CHF but type is unknown Attestations Medical Necessity Statement*: Needs ICU care for myxedema coma, she is critical Time Spent in Patient Care: 50 Critical Care Time: Critical Care Time (min): 30 Coding Level of Care Code Acute Smog Technician for Chg Fwd Diagnoses Myxedema coma E03.5 Respiratory failure J96.90 Altered mental status R41.82 CHF (congestive heart failure) I50.9 Bradycardia R00.1
--- NOTE | 2019-09-25 20:57 | PC.NURSE ---
Patient taken to icu with resp on vent. Report given to Glo PENG.
--- NOTE | 2019-09-25 21:17 | PC.PHAR ---
Creatinine clearance s 26.0422. Vancomycin is dosed at 750mg IVPB every 24 hours to produce a predicted trough level of 17.23 (population based pharmacokinetic analysis). A trough level has been ordered to be collected before the fourth dose to confirm and adjust if needed. Zosyn is dosed at 3.375gm IVPB every 8 hours each dose to be administered over 4 hours per extended infusion protocol.
[2019-09-25] MEDS: sodium chloride 0.9% 100 ML 10 ML (21:27)
[2019-09-25 21:50] LABS: Glucose Point of Care 153 mg/dL (70-110)
--- NOTE | 2019-09-25 22:00 | PC.NURSE ---
PT CAME TO ICU FROM [facility] RN GAVE BEDSIDE REPORT. UPON ASSESSMENT, NO MOVEMENT BY PATIENT, PUPILS ARE REACTIVE. PT HAS NO STIMULI WHEN MOVING OR ROLLING. PT HAS NO SEDATION CURRENTLY OR RESTRAINTS.
[2019-09-25 22:03] LABS: Free T4 Free Thyroxine 1.16 ng/dL (0.82-1.77)
--- NOTE | 2019-09-25 22:03 | PC.NURSE ---
PLACED BY ER NURSE PRIOR TO ICU ADMISSION
[2019-09-25 22:20] LABS: Sodium 150 mmol/L (136-145); Troponin 5 6HR 74.94 ng/mL (0-10)
[2019-09-25 22:33] LABS: Cortisol Random 41.06 mcg/dL (2.47-19.5)
--- NOTE | 2019-09-25 22:38 | ECG_ITS ---
Measurements Intervals [place] Rate: 56 P: 53 SD: 181 QRS: 49 QRSD: 104 T: 34 QT: 446 QTc: 433 SINUS BRADYCARDIA Compared to ECG 09/25/2019 16:46:10 No significant changes Electronically Signed On 09-26-2019 15:41:12 PRE PRESS PROOFER by Latasha Singh M.D. [id number]
[2019-09-25] MEDS: FUROsemide 10 mg/mL SDV 4mL 40 MG IVP (23:11)
[2019-09-25 23:19] LABS: Glucose Point of Care 141 mg/dL (70-110)
[2019-09-26] VITALS (66 sets, daily range): BP systolic 81–160; BP diastolic 44–121; PULSE 54–81; RESP 14–16; TEMP 36.3–37.8; O2SAT 93–99; BMI 34.2
[2019-09-26] MEDS: sodium chloride 0.9% 100 ML 75 ML (00:04)
[2019-09-26 02:08] LABS: Glucose Point of Care 139 mg/dL (70-110)
[2019-09-26] MEDS: vancomycin 750 MG in sodium chloride 0.9% 250 ML 250 MG IV (02:20)
[2019-09-26] MEDS: hydrocortisone 100 mg/2 mL SDV IVP ×3 (02:31→17:46)
[2019-09-26] MEDS: piperacillin-tazobactam 3.375 GM in sodium chloride 0.9% (plus) 50 ML IV ×3 (04:03→21:12)
[2019-09-26 04:29] LABS: ABG PCO2 36.7 mmHg (35-45); ABG PH Result 7.41 (7.35-7.45); Arterial Blood Gas Hematocrit 39.4 % (37-47); Base Excess ABG -0.9 mmol/L (-2.0-2.0); Blood Gas Allen Test Pos; Blood Gas Sample Site Radial, right; Blood Gas Sample Type Arterial; HCO3 ABG 23.4 mmol/L (22-26); Oxygen Device VENT; PO2 ABG 97.3 mmHg (80.0-100.0)
[2019-09-26 04:56] LABS: Glucose Point of Care 148 mg/dL (70-110)
[2019-09-26 05:04] LABS: Hematocrit 33.3 % (37.0-47.0); Hemoglobin 10.1 g/dL (11.5-15.3); Lymphocytes # 0.4 10^3/uL (0.8-4.8); Lymphocytes % 3.6 %; Mean Corpuscular HGB Conc 30.3 g/dL (30.0-36.0); Mean Corpuscular Hemoglobin 26.1 pg (28.0-34.0); Mean Platelet Volume 12.2 fL (7.4-10.4); Monocytes # 0.3 10^3/uL (0.2-0.9); Monocytes % 3.4 %; Neutrophils # 9.2 10^3/uL (1.8-7.7); Neutrophils % 92.5 %; Nucleated Red Blood Cells # 0.1 /100WBC; Nucleated Red Blood Cells % 0.5 %; Platelet Count 174 10^3/cmm (130-400); Red Blood Count 3.87 10^6/uL (4.1-5.3); Red Cell Distribution Width 16.3 % (12.1-15.1); White Blood Count 9.9 10^3/uL (4.0-10.0)
--- NOTE | 2019-09-26 05:17 | PC.NURSE ---
SHIFT SUMMARY PT HAS REMAINED INTUBATED. PT LUNGS REMAIN COARSE AND CRACKLES, BLOOD PRESSURE RUNNING SOFTER MAP REMAINS ABOVE 65. DR RIVERA AWARE OF BLOOD PRESSURE AND DECREASED URINE OUTPUT. PT IV REMAINS PATENT. PT HAS BEEN TURNED PERIODICALLY, PT TEMPERATURE IS NOW UP TO 100. BEAR HUGGER HAS BEEN OFF FOR A COUPLE OF HOURS NOW. PT IS ABLE TO FOLLOW COMMANDS, SQUEEZE NURSE HANDS, AND OPEN EYES TO COMMAND. PT IS NOT ON ANY SEDATION OR IN ANY RESTRAINTS CURRENTLY.
[2019-09-26 05:25] LABS: Alanine Aminotransferase 18 U/L (0-33); Albumin Level 2.6 g/dL (3.5-5.2); Alkaline Phosphatase 152 IU/L (35-105); Anion Gap 17.5 (5-19); Aspartate Amino Transferase 20 U/L (0-32); Blood Urea Nitrogen 48 mg/dL (8-23); Calcium 8.6 mg/dL (8.5-10.5); Carbon Dioxide 23 mmol/L (22-29); Chloride 115 mmol/L (98-107); Globulin 3.1 g/dL (1.3-4.6); Glucose 127 mg/dL (65-115); Potassium 4.5 mmol/L (3.5-5.1); Sodium 151 mmol/L (136-145); Total Bilirubin 0.5 mg/dL (0.15-1.2); Total Protein 5.7 g/dL (6.6-8.7)
[2019-09-26] MEDS: dextrose 5% 1,000 ML 75 ML IV ×2 (06:27→20:16)
[2019-09-26 07:51] LABS: Glucose Point of Care 129 mg/dL (70-110)
[2019-09-26 09:03] LABS: Glucose Point of Care 130 mg/dL (70-110)
[2019-09-26] MEDS: pantoprazole 40 mg SDV IVP ×2 (09:10→17:46)
--- NOTE | 2019-09-26 09:14 | PM.PN ---
Subjective Subjective: Interval history: She is intubated, on minimal sedation, this morning she wakes up, is interactive and readily follows commands. Denies pain. Breathing on the ventilator currently is comfortable. She has some generalized weakness, and is usually wheelchair-bound, however, is able to move all extremities. Vitals/I&O/Wt Last Vital Signs Temp 100.0 F H 09/26/19 04:45 Pulse 80 09/26/19 06:00 Resp 16 09/26/19 08:36 BP 106/71 09/26/19 06:00 Pulse Ox 96 09/26/19 06:00 09/25/19 09/26/19 09/26/19 22:59 06:59 14:59 Intake Total 3061.74 / 3061.74 950 / 4011.74 Output Total 325 / 325 Balance 3061.74 / 3061.74 625 / 3686.74 Weight last 48 hrs Weight 86.228 kg Weight 102.058 kg Physical Exam Const: COMMON NORMALS: no apparent distress HENMT: COMMON NORMALS: oropharynx normal Neck/C-Spine: COMMON NORMALS: no JVD Resp: COMMON NORMALS: normal respiratory effort AUSCULTATION: rhonchi Cardio: COMMON NORMALS: no JVD, regular rhythm, S1 normal heart sound, S2 normal heart sound and no murmurs RHYTHM: regular rhythm HEART SOUNDS: S1 normal and S2 normal GI: COMMON NORMALS: normal to inspection, nondistended, normoactive bowel sounds, soft to palpation and non-tender PALPATION: Yes soft Extremity: OTHER: Bilateral lower extremity edema below the knees. Bilateral deformity of the feet, as patient is nonambulatory. Neuro: COMMON NORMALS: moves all extremities Skin: RASHES: rashes noted (Right lower extremity anterolateral martin shallow ulceration with granulation tissue, erythema, no purulent discharge.) Urinary Catheter Management^: Luna: Cath Placed During This Visit: yes Urinary Catheter Date of Insertion: 09/25/19 Urinary Catheter Time of Insertion: 17:11 Data : 09/26/19 04:40 09/26/19 04:40 Micro: Microbiology 09/25/19 16:51 Blood Culture - Preliminary Blood SPECIMEN COLLECTED 09/25/19 16:45 Blood Culture - Preliminary Blood SPECIMEN COLLECTED A&P Assessment and plan (1) Myxedema coma: She does admit to not in her thyroid medication. When asked if it was giving her side effects denies, when asked if she was forgetting, does not respond. Not clear reason for why she had stopped at this time. She is awake and alert currently blood pressure is improved. Acute encephalopathy, respiratory failure suspected secondary to myxedema coma, as well as pneumonia, cellulitis. Status: Acute Code(s): E03.5 - Myxedema coma (2) Respiratory failure: Noted to have oral secretions, although only some respiratory secretions. FiO2 40%. PEEP is 10. She is awake alert, blood pressure is better. Weaning trial today, and reattempt as tolerating toward extubation. With pneumonia noted on imaging. She does report having cough. She also reports having cough with drinking water. Request speech therapy assessment after extubation. Status: Acute Qualifiers: Chronicity: acute Respiratory failure complication: hypoxia Qualified Code(s): J96.01 - Acute respiratory failure with hypoxia Code(s): J96.90 - Respiratory failure, unspecified, unspecified whether with hypoxia or hypercapnia (3) Altered mental status: This appears to have improved. Encephalopathy secondary to possible myxedema, as well as pneumonia, cellulitis. Status: Acute Qualifiers: Altered mental status type: coma Coma depth: [place] coma 3-8 Coma timing: in the field (EMT or ambulance) Qualified Code(s): R40.2431 - [place] coma scale score 3-8, in the field [EMT or ambulance] Code(s): R41.82 - Altered mental status, unspecified (4) CHF (congestive heart failure): Pending echocardiogram evaluation. Blood pressure is better. Lasix had been added. Monitor I&O. Status: Acute Qualifiers: Heart failure chronicity: acute Heart failure type: unspecified Qualified Code(s): I50.9 - Heart failure, unspecified Code(s): I50.9 - Heart failure, unspecified (5) Bradycardia: Heart rate improved. Currently in the 70s. Status: Acute Code(s): R00.1 - Bradycardia, unspecified Additional A&P Information Acute anemia: Possible chronic disease with hypothyroidism. But also Hemoccult positive. Surgery was consulted. Appreciate recommendations. Received 2 units previous transfusion. Continue PPI. RLE cellulitis: continue antibiotic. Attestations Medical Necessity Statement*: Continue admission for close management of A. fib, acute encephalopathy, myxedema, CHF exacerbation. In addition to noncritical issues 15 minutes critical care time spent on assessment of hemodynamic status, respiratory status, conditions contributing to hypotension, hypoxia, evaluation of respiratory support, readiness for extubation. Coding Level of Care Code Acute Loss Prevention Lead for g Fwd Diagnoses Myxedema coma E03.5 Respiratory failure J96.01 Chronicity: acute Respiratory failure complication: hypoxia Altered mental status R40.2431 Altered mental status type: coma Coma depth: [place] coma 3-8 Coma timing: in the field (EMT or ambulance) CHF (congestive heart failure) I50.9 Heart failure chronicity: acute Heart failure type: unspecified Bradycardia R00.1
[2019-09-26 10:52] LABS: Sodium 148 mmol/L (136-145)
[2019-09-26 11:55] LABS: Glucose Point of Care 136 mg/dL (70-110)
--- NOTE | 2019-09-26 15:01 | PM.CONSULT ---
Providers/Reason For Consult Consulting Physican/Specialty*: Gilmar Pineda Reason for Consult*: Anemia Attending Physician: Gilmar Pineda Primary Care Provider: DORA Smith History of Present Illness History of Present Illness Merari Parada is a 84 year old female who was brought to the ER yesterday with shortness of breath and altered mental status. She lives with the sister and had generally been doing well but is noted to be more confused and short of breath. She was hypotensive in the ER with associated hypothermia and she was subsequently intubated. As per the patient's sister she has never had an EGD or colonoscopy. She apparently had some black stools few weeks ago but never been diagnosed with peptic ulcer disease. Patient had not complained of any abdominal pain nausea vomiting hematemesis or hematochezia. She was noted to be anemic in the ER with a hemoglobin of 7.3 Review of Systems General: Reports: ROS unobtainable due to mental status Meds/Allergies Home Medications and Allergies Home Medications Medication Instructions Recorded Confirmed Type Dandelion Root 1 tab PO DAILY 09/25/19 09/25/19 History Vitamin C 1 tab PO DAILY 09/25/19 09/25/19 History atorvastatin See Rx Instructions .ROUTE .COMPLEX 09/25/19 09/25/19 History baclofen 10 mg PO BID 09/25/19 09/25/19 History docusate sodium [DOK] 100 mg PO DAILY PRN 09/25/19 09/25/19 History furosemide 20 mg PO BID 09/25/19 09/25/19 History lisinopril 40 mg PO DAILY 09/25/19 09/25/19 History metoprolol tartrate 25 mg PO BID 09/25/19 09/25/19 History potassium chloride 10 meq PO DAILY 09/25/19 09/25/19 History Allergies Allergy/AdvReac Type Severity Reaction Status Date / Time No Known Allergies Allergy Verified 09/26/19 08:42 Current Medications Current Medications Generic Name Dose Route Start Last Admin Trade Name Freq PRN Reason Stop Dose Admin Furosemide 40 mg 09/25/19 21:37 09/25/19 23:11 Lasix IVP 40 mg ONCE PRN Administration give after first unit of blood Furosemide 60 mg 09/25/19 22:30 09/25/19 23:00 Lasix IVP Not Given Q12H LILA Hydrocortisone Sodium Succinate 100 mg 09/26/19 02:00 09/26/19 09:11 Solu-Cortef Inj IVP 100 mg Q8H ILLA Administration Vancomycin HCl 750 mg/ Sodium 250 mls @ 250 mls/hr 09/25/19 22:00 09/26/19 03:20 Chloride IV Infused Q24H LILA Infusion Protocol As Directed Piperacillin Sod/Tazobactam 50 mls @ 12.5 mls/hr 09/26/19 01:00 09/26/19 11:58 Sod 3.375 gm/ Sodium Chloride IV 12.5 mls/hr Q8H LILA Administration Protocol As Directed Fentanyl 1,000 mcg/ Sodium 100 mls @ 0 mls/hr 09/26/19 06:00 09/26/19 07:35 Chloride IV 20 mcg/hr .Q0M LILA 2 mls/hr Administration Protocol Per Protocol Dextrose 1,000 mls @ 75 mls/hr 09/26/19 06:15 09/26/19 06:27 D5w IV 75 mls/hr .[id number] LILA Administration Pantoprazole Sodium 40 mg 09/26/19 09:00 09/26/19 09:10 Protonix IVP 40 mg BID LILA Administration PFSH Acute PFSH: Medical History CHF (congestive heart failure) HTN (hypertension) Hypothyroidism Surgical History H/O knee surgery Family History Denies family history of CAD (coronary artery disease) Bleeding disorder Social History Smoking and tobacco status: never smoked Alcohol intake: never Substance/Drug Use: never Household members: family Vitals/I&O/Wt Last Vital Signs Temp 100.0 F H 09/26/19 04:45 Pulse 76 09/26/19 14:00 Resp 14 09/26/19 13:33 BP 135/71 09/26/19 14:00 Pulse Ox 96 09/26/19 14:00 09/26/19 09/26/19 09/26/19 06:59 14:59 22:59 Intake Total 950 / 4011.74 50 / 50 Output Total 325 / 325 Balance 625 / 3686.74 50 / 50 Weight last 48 hrs Weight 193 lb Weight 190 lb 1.6 oz Weight 225 lb Physical Exam Narrative: EXAM NARRATIVE: HEENT: Normocephalic Eye: Sclera /conjunctiva normal Respiratory and chest: Intubated on the ventilator Cardiovascular: Normal S1 and S2 heart sounds Abdomen: Soft to palpation Neurological: not examined Skin: Intact, no lesions appreciated on gross exam Urinary Catheter Management^: Luna: Cath Placed During This Visit: yes Reason for Continuing Indwelling Catheter: Accurate Measurement of Urinary Output in Critically Ill Patients Urinary Catheter Date of Insertion: 09/25/19 Urinary Catheter Time of Insertion: 17:11 Data Micro: Micro: Microbiology 09/25/19 16:51 Blood Culture - Pr eliminary Blood SPECIMEN [facility] 09/25/19 16:45 Blood Culture - Pr eliminary Blood SPECIMEN [facility] A&P Assessment and plan (1) Anemia: 84-year-old female with multiple medical issues currently on the ventilator noted to be anemic. There is no evidence of active GI bleed at present and the only history of significance with regard to anemia has been the black stools as mentioned by her sister a few weeks ago. Patient is hemodynamically stable at present. At this point I will be available if she develops an acute GI bleed but otherwise she might need a panendoscopy as an outpatient or just prior to discharge. Status: Acute Code(s): D64.9 - Anemia, unspecified Coding Level of Care Code Acute [facility] [employer] Diagnoses Anemia D64.9
[2019-09-26 16:24] LABS: Sodium 147 mmol/L (136-145)
[2019-09-26 20:47] LABS: Sodium 147 mmol/L (136-145)
--- NOTE | 2019-09-26 21:11 | USCV_ITS ---
Merari Parada Age: 84 Gender: F : 1935 Exam Date: 09/26/2019 06:06 Ordering Phys: Gennaro Palumbo MD Technologist: Yaquelin Weems [place] [facility] [place]: chf, myxedema, coma, BP: 100 / 72 HR: 82 Rhythm: Sinus Technical Quality: Fair MEASUREMENTS (Male / Female) Normal Values 2D ECHO LV Diastolic Diameter PLAX 3.1 cm 4.2 - 5.9 / 3.9 - 5.3 cm LV Systolic Diameter PLAX 1.0 cm IVS Diastolic Thickness 1.2 cm 0.6 - 1.0 / 0.6 - 0.9 cm IVS Systolic Thickness 1.5 cm LVPW Diastolic Thickness 1.6 cm 0.6 - 1.0 / 0.6 - 0.9 cm LVPW Systolic Thickness 1.8 cm LVOT Diameter 2.0 cm LV Ejection Fraction 2D Teich 94.7 % LV Ejection Fraction MOD 2C 78.9 % LV Ejection Fraction 2C AL 81.9 % LA Diameter 3.2 cm LA Width 2.9 cm LA Height 5.4 cm RA Width 3.0 cm RA Height 4.0 cm M-MODE LV Diastolic Diameter MM 2.9 cm 4.2 - 5.9 / 3.9 - 5.3 cm LV Systolic Diameter MM 1.2 cm LV Ejection Fraction MM Teich 89.5 % IVS Diastolic Thickness MM 0.9 cm 0.6 - 1.0 / 0.6 - 0.9 cm IVS Systolic Thickness MM 1.6 cm LVPW Diastolic Thickness MM 1.1 cm 0.6 - 1.0 / 0.6 - 0.9 cm LVPW Systolic Thickness MM 1.9 cm Aortic Annulus Diameter 2.4 cm LA Ao Ratio MM 1.3 MV E Point Septal Separation 0.6 cm DOPPLER AV Peak Velocity 356.0 cm/s LVOT Peak Velocity 167.0 cm/s AV Area Cont Eq vti 1.5 cm squared AV Area Cont Eq pk 1.5 cm squared MV Peak Velocity 145.0 cm/s MV Area PHT 2.8 cm squared Mitral E to A Ratio 0.9 MV E' Velocity 9.0 cm/s Mitral E to MV E' Ratio 14.9 Mitral E to LV E' Lateral Ratio 12.6 Mitral E to LV E' Septal Ratio 18.5 TR Peak Velocity 179.0 cm/s TR Peak Gradient 12.7 mmHg Right Atrial Pressure 8.0 mmHg Pulmonary Artery Systolic Pressu 20.8 mmHg PV Peak Velocity 124.0 cm/s RV Acceleration Time 0.1 s FINDINGS Left Ventricle Normal left ventricular cavity size. Normal left ventricular systolic function. No regional wall motion abnormalities. Left ventricular ejection fraction is estimated at 60 %. Grade I/IV diastolic dysfunction (abnormal relaxation filling pattern), normal to mildly elevated filling pressures. Right Ventricle The right ventricle is normal in size and function. Right Atrium The right atrium is normal in size. Left Atrium The left atrium is normal in size. Mitral Valve Structurally normal mitral valve without significant stenosis or prolapse. There is no mitral regurgitation. Aortic Valve Moderate aortic valve calcification. Moderate aortic valve stenosis, mean gradient 25.1 mmHg, JIMI 1.5 cm squared. No aortic valve regurgitation. Tricuspid Valve Structurally normal tricuspid valve without significant stenosis or regurgitation. Pulmonary artery systolic pressure is normal. Pulmonic Valve Pulmonic valve not well visualized. Pericardium Normal pericardium without effusion. Aorta Normal ascending aorta dimension. CONCLUSIONS 1-Normal left ventricular cavity size. Normal left ventricular systolic function. No regional wall motion abnormalities. Left ventricular ejection fraction is estimated at 60 %. Grade I/IV diastolic dysfunction (abnormal relaxation filling pattern), normal to mildly elevated filling pressures. 2-Moderate aortic valve calcification. Moderate aortic valve stenosis, mean gradient 25.1 mmHg, JIMI 1.5 cm squared. No aortic valve regurgitation. 3-Structurally normal mitral valve without significant stenosis or prolapse. There is no mitral regurgitation. 4-There is no pericardial effusion. 5-Pulmonary artery systolic pressure is within normal limits. 6-Right atrial pressure is around 5 mm of mercury. 7-There are no prior echocardiogram studies to compare. Gennaro Mendieta MD (Electronically Signed) Final Date: 26 September 2019 16:07 S
[2019-09-26 21:23] LABS: Glucose Point of Care 137 mg/dL (70-110)
[2019-09-27] VITALS (58 sets, daily range): BP systolic 94–182; BP diastolic 58–145; PULSE 59–98; RESP 11–19; TEMP 37–37.5; O2SAT 87–100
[2019-09-27] MEDS: hydrocortisone 100 mg/2 mL SDV IVP ×3 (01:11→17:37)
[2019-09-27] MEDS: vancomycin 750 MG in sodium chloride 0.9% 250 ML 166 MG IV (01:11)
[2019-09-27 04:01] LABS: Basophils % 0.1 %; Hematocrit 33.1 % (37.0-47.0); Hemoglobin 9.5 g/dL (11.5-15.3); Lymphocytes # 0.5 10^3/uL (0.8-4.8); Lymphocytes % 4.3 %; Mean Corpuscular HGB Conc 28.7 g/dL (30.0-36.0); Mean Corpuscular Hemoglobin 26.2 pg (28.0-34.0); Mean Corpuscular Volume 91.4 fL (81-99); Mean Platelet Volume 11.3 fL (7.4-10.4); Monocytes # 0.5 10^3/uL (0.2-0.9); Monocytes % 4.4 %; Neutrophils # 10.1 10^3/uL (1.8-7.7); Neutrophils % 90.7 %; Nucleated Red Blood Cells % 0.2 %; Platelet Count 189 10^3/cmm (130-400); Red Blood Count 3.62 10^6/uL (4.1-5.3); White Blood Count 11.1 10^3/uL (4.0-10.0)
[2019-09-27 04:22] LABS: Alanine Aminotransferase 15 U/L (0-33); Albumin Level 2.2 g/dL (3.5-5.2); Alkaline Phosphatase 118 IU/L (35-105); Anion Gap 16.3 (5-19); Aspartate Amino Transferase 21 U/L (0-32); Blood Urea Nitrogen 42 mg/dL (8-23); Calcium 8.2 mg/dL (8.5-10.5); Carbon Dioxide 21 mmol/L (22-29); Chloride 114 mmol/L (98-107); Globulin 3.4 g/dL (1.3-4.6); Glucose 106 mg/dL (65-115); Potassium 4.3 mmol/L (3.5-5.1); Sodium 147 mmol/L (136-145); Total Bilirubin 0.2 mg/dL (0.15-1.2); Total Protein 5.6 g/dL (6.6-8.7)
[2019-09-27] MEDS: piperacillin-tazobactam 3.375 GM in sodium chloride 0.9% (plus) 50 ML IV ×3 (04:55→19:54)
[2019-09-27 05:42] LABS: ABG PCO2 40.3 mmHg (35-45); ABG PH Result 7.39 (7.35-7.45); Arterial Blood Gas Hematocrit 32.5 % (37-47); Base Excess ABG -0.4 mmol/L (-2.0-2.0); Blood Gas Sample Site Brachial, right; Blood Gas Sample Type Arterial; Blood Gas Tidal Volume 0.4; HCO3 ABG 24.5 mmol/L (22-26); Oxygen Device VENT; PO2 ABG 88.7 mmHg (80.0-100.0)
--- NOTE | 2019-09-27 06:00 | XR_ITS ---
WS: [id number] XR chest 1V portable [id number] REASON FOR EXAM: Hypoxia FINDINGS: The endotracheal tube is at the priya superior margin. May be slightly low. A feeding tube appears to be in the stomach. Right pleural effusion is similar to the previous exam with mild thickening of the minor fissure seen . There is also noted today a small amount of left pleural effusion. The right shoulder shows degenerate changes. XR/XR chest 1V portable [id number] IMPRESSION: The endotracheal tube is at the priya May BE too low. Feeding tube good position. Small amounts of bilateral pleural effusion There is again noted thickening of the minor fissure on the right. There is degenerate changes of the right shoulder, the left humerus appears to be displaced.
[2019-09-27 07:45] LABS: Glucose Point of Care 127 mg/dL (70-110)
--- NOTE | 2019-09-27 10:05 | PC.NURSE ---
SHIFT SUMMARY PT REMAINS INTUBATED, VITAL SIGNS REMAIN STABLE. PT REMAINS ON FENTANYL 50MCG, PT WILL FOLLOW COMMANDS,. PT HAS HAD ORAL CARE PRN. PT WAS TURNED PRN WELL. REPORT GIVEN TO GINETTE FLORES. DR AMARAL ROUNDED ON PATIENT.
[2019-09-27] MEDS: pantoprazole 40 mg SDV IVP ×2 (10:10→17:37)
[2019-09-27 11:15] LABS: Glucose Point of Care 123 mg/dL (70-110)
[2019-09-27] MEDS: dextrose 5% 1,000 ML 75 ML IV (12:39)
--- NOTE | 2019-09-27 13:18 | PC.NURSE ---
[facility] Patient [facility] to [facility] machine per Dr. Pineda's request during morning rounding. SVI at 16.8%.
--- NOTE | 2019-09-27 14:47 | PC.RESP ---
patient extubated to 6L NC tolerated well
--- NOTE | 2019-09-27 15:07 | PC.NURSE ---
Patient extubated by respiratory at 1430. Placed on 5lnc. Patient alert and moving all extremities. Family report patient is at normal baseline for neuro status.
--- NOTE | 2019-09-27 20:23 | PM.PN ---
Subjective Subjective: Interval history: This morning intubated, but denies any pain, breathing comfortable with ET tube. Wakes up easily. Follows commands. Vitals/I&O/Wt Last Vital Signs Temp 99.5 F 09/27/19 17:56 Pulse 78 09/27/19 20:00 Resp 16 09/27/19 16:00 BP 171/82 09/27/19 20:00 Pulse Ox 94 09/27/19 20:00 09/27/19 09/27/19 09/27/19 06:59 14:59 22:59 Intake Total 50 / 1150 1114.642 / 1114.642 300 / 1414.642 Output Total 250 / 600 150 / 150 400 / 550 Balance -200 / 550 964.642 / 964.642 -100 / 864.642 Weight last 48 hrs Weight 88.961 kg Weight 87.543 kg Weight 86.228 kg Physical Exam Const: COMMON NORMALS: no apparent distress HENMT: COMMON NORMALS: oropharynx normal Neck/C-Spine: COMMON NORMALS: no JVD Resp: COMMON NORMALS: normal respiratory effort AUSCULTATION: rhonchi Cardio: COMMON NORMALS: no JVD, regular rhythm, S1 normal heart sound, S2 normal heart sound and no murmurs RHYTHM: regular rhythm HEART SOUNDS: S1 normal and S2 normal GI: COMMON NORMALS: normal to inspection, nondistended, normoactive bowel sounds, soft to palpation and non-tender PALPATION: Yes soft Extremity: OTHER: Bilateral lower extremity edema below the knees. Bilateral deformity of the feet, as patient is nonambulatory. Neuro: COMMON NORMALS: moves all extremities Skin: RASHES: rashes noted (Right lower extremity anterolateral martin shallow ulceration with granulation tissue, erythema, no purulent discharge.) Urinary Catheter Management^: Luna: Cath Placed During This Visit: yes Reason for Continuing Indwelling Catheter: Accurate Measurement of Urinary Output in Critically Ill Patients Urinary Catheter Date of Insertion: 09/25/19 Urinary Catheter Time of Insertion: 17:11 Data : 09/27/19 03:34 09/27/19 03:34 Micro: Microbiology 09/25/19 17:24 Urine Culture - Preliminary Urine,Clean Catch Gram Negative Rods 09/25/19 16:51 Blood Culture - Preliminary Blood NEGATIVE TO DATE 09/25/19 16:45 Blood Culture - Preliminary Blood NEGATIVE TO DATE A&P Assessment and plan (1) Respiratory failure: Did well on weaning trial this morning. Extubated to nasal cannula. So far remained stable on 5 L. Continue treatment for pneumonia. PERMIT REVIEW ASSISTANT evaluation she reported cough with drinking water. Strict aspiration precautions. 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 Received IV levothyroxine on presentation. I am not convinced that this was myxedema coma as T4 concentration was normal. I suspect her symptoms may have been related to her medication, perhaps baclofen, and acute infection. Her blood pressure has stabilized. Wean down hydrocortisone. Status: Acute Code(s): E03.5 - Myxedema coma (3) Altered mental status: This appears to have improved. Suspect acute encephalopathy secondary to medication, as well as pneumonia, cellulitis. Status: Acute Qualifiers: Altered mental status type: coma Coma depth: [place] coma 3-8 Coma timing: in the field (EMT or ambulance) Qualified Code(s): R40.2431 - [place] coma scale score 3-8, in the field [EMT or ambulance] Code(s): R41.82 - Altered mental status, unspecified (4) CHF (congestive heart failure): Normal ejection fraction. Grade 1 diastolic dysfunction. Agree with holding further diuretics. Recheck chest x-ray in the morning. Noted moderate aortic stenosis. Status: Acute Qualifiers: Heart failure chronicity: acute Heart failure type: unspecified Qualified Code(s): I50.9 - Heart failure, unspecified Code(s): I50.9 - Heart failure, unspecified (5) Bradycardia: Heart rate improved. Status: Acute Code(s): R00.1 - Bradycardia, unspecified Additional A&P Information Moderate aortic stenosis: Noted on echocardiogram. Acute anemia: Possible chronic disease with hypothyroidism. But also Hemoccult positive. Surgery was consulted. Appreciate recommendations. Received 2 units previous transfusion. Continue PPI. RLE cellulitis and ulceration: continue antibiotic. Attestations Medical Necessity Statement*: Continue admission for assessment of management of acute respiratory failure with hypoxia, acute encephalopathy, acute blood loss anemia. 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
[2019-09-27] MEDS: FUROsemide 10 mg/mL SDV 2mL 20 MG IVP (21:10)
[2019-09-27 21:20] LABS: Glucose Point of Care 127 mg/dL (70-110)
[2019-09-28] VITALS (31 sets, daily range): BP systolic 100–202; BP diastolic 60–142; PULSE 54–84; RESP 20; TEMP 36.4–37; O2SAT 88–96
--- NOTE | 2019-09-28 00:20 | PC.NURSE ---
medication change Patient blood pressure increasingly getting higher. called and informed of patient vitals. verbal order for maintenance fluids to be stopped and reassess blood pressure after stop of fluids. BP:181/101 HR:70 O2: 97
[2019-09-28] MEDS: hyDRALAzine 20 mg/mL INJ 1 mL 5 MG IVP (01:26)
[2019-09-28] MEDS: vancomycin 750 MG in sodium chloride 0.9% 250 ML 250 MG IV (01:30)
[2019-09-28 03:39] LABS: Glucose Point of Care 100 mg/dL (70-110)
[2019-09-28] MEDS: piperacillin-tazobactam 3.375 GM in sodium chloride 0.9% (plus) 50 ML IV ×3 (04:38→21:31)
[2019-09-28 05:17] LABS: Basophils % 0.1 %; Hematocrit 34.9 % (37.0-47.0); Hemoglobin 10.2 g/dL (11.5-15.3); Lymphocytes # 0.6 10^3/uL (0.8-4.8); Lymphocytes % 5.1 %; Mean Corpuscular HGB Conc 29.2 g/dL (30.0-36.0); Mean Corpuscular Hemoglobin 25.8 pg (28.0-34.0); Mean Corpuscular Volume 88.4 fL (81-99); Mean Platelet Volume 10.8 fL (7.4-10.4); Monocytes # 0.5 10^3/uL (0.2-0.9); Neutrophils # 10.2 10^3/uL (1.8-7.7); Neutrophils % 90.2 %; Nucleated Red Blood Cells % 0 %; Platelet Count 186 10^3/cmm (130-400); Red Blood Count 3.95 10^6/uL (4.1-5.3); Red Cell Distribution Width 16.4 % (12.1-15.1); White Blood Count 11.4 10^3/uL (4.0-10.0)
[2019-09-28] MEDS: hydrocortisone 100 mg/2 mL SDV 50 MG IVP (05:43)
[2019-09-28 05:46] LABS: Alanine Aminotransferase 27 U/L (0-33); Albumin Level 2.6 g/dL (3.5-5.2); Alkaline Phosphatase 127 IU/L (35-105); Anion Gap 14.4 (5-19); Aspartate Amino Transferase 38 U/L (0-32); Blood Urea Nitrogen 39 mg/dL (8-23); Calcium 8.4 mg/dL (8.5-10.5); Carbon Dioxide 24 mmol/L (22-29); Chloride 110 mmol/L (98-107); Globulin 3.5 g/dL (1.3-4.6); Glucose 117 mg/dL (65-115); Potassium 3.4 mmol/L (3.5-5.1); Sodium 145 mmol/L (136-145); Total Bilirubin 0.4 mg/dL (0.15-1.2); Total Protein 6.1 g/dL (6.6-8.7)
--- NOTE | 2019-09-28 06:00 | XR_ITS ---
WS: [id number] XR chest 1V portable [id number] REASON FOR EXAM: Hypoxia FINDINGS: The endotracheal tube has been removed. Fullness off the right hilum is seen and there now appears to be a low grade infiltrate off the hilum on the right. The heart was normal. The endotracheal tube has been removed as well as a feeding tube. Small amounts of bilateral pleural effusion now seen. XR/XR chest 1V portable [id number] IMPRESSION: Small amounts of bilateral pleural effusion. Infiltrate appears to be evident off the slightly prominent right hilum.
[2019-09-28] MEDS: pantoprazole 40 mg SDV IVP ×2 (08:04→18:02)
[2019-09-28 09:28] LABS: Gamma Glutamyl Transferase 21 U/L (5-36)
[2019-09-28] MEDS: metoprolol tartrate 25 mg Tablet PO ×2 (13:59→17:33)
--- NOTE | 2019-09-28 16:08 | XRR_ITS ---
PROCEDURE INFORMATION: Exam: XR Left Knee Exam date and time: 09/28/2019 4:08 PM Age: 84 years old Clinical indication: Swelling, leg or foot; Patient HX: Limited HX due to PT condition, unable to communicate. ; Additional info: Pain TECHNIQUE: Imaging protocol: XR Left knee. Views: 3 views. COMPARISON: No relevant prior studies available. FINDINGS: Bones/joints: Moderately large joint effusion. Advanced primary osteoarthritis with near complete lateral joint space height loss. Hypertrophic spurring and eburnation. Valgus deformity. Osteoporosis. Moderately advanced patellofemoral degenerative disease. Soft tissues: Normal. Vasculature: Arterial sclerosis. XR/XR knee LT 3V* [id number] IMPRESSION: 1. Moderately large joint effusion. 2. Advanced primary osteoarthritis with valgus deformity and lateral joint space height loss. 3. Osteoporosis. 4. Arterial sclerosis.
--- NOTE | 2019-09-28 16:55 | P.PN_ITS ---
Subjective Subjective: Interval history: Today she is bothered by some discomfort across her abdomen. She is not sure when was last bowel movement she has had. She is also bothered by pain in her left knee with movement. Also complaining of nasal congestion, stating she is needing to blow her nose and proceeds to demonstrate. Vitals/I&O/Wt Last Vital Signs Temp 97.8 F 09/28/19 06:00 Pulse 71 09/28/19 14:00 Resp 16 09/27/19 16:00 BP 183/105 09/28/19 14:00 Pulse Ox 96 09/28/19 14:00 09/28/19 09/28/19 09/28/19 06:59 14:59 22:59 Intake Total 290 / 290 Output Total 200 / 200 Balance 90 / 90 Weight last 48 hrs Weight 88.961 kg Weight 88.961 kg Physical Exam 2 Const: COMMON NORMALS: no apparent distress OTHER: She is awake and alert, interactive, limited historian. HENMT: COMMON NORMALS: oropharynx normal Neck/C-Spine: COMMON NORMALS: no JVD Resp: COMMON NORMALS: normal respiratory effort AUSCULTATION: rhonchi Cardio: COMMON NORMALS: no JVD, regular rhythm, S1 normal heart sound, S2 normal heart sound and no murmurs RHYTHM: regular rhythm HEART SOUNDS: S1 normal and S2 normal GI: COMMON NORMALS: normal to inspection, nondistended, normoactive bowel sounds, soft to palpation and non-tender PALPATION: Yes soft Extremity: OTHER: Bilateral lower extremity edema below the knees. Bilateral deformity of the feet, as patient is nonambulatory. Neuro: COMMON NORMALS: moves all extremities Skin: RASHES: rashes noted (Right lower extremity anterolateral martin shallow ulceration with granulation tissue, erythema, no purulent discharge.) Urinary Catheter Management^: Luna: Cath Placed During This Visit: yes Reason for Continuing Indwelling Catheter: Accurate Measurement of Urinary Out put in Critically Ill Patients Urinary Catheter Date of Insertion: 09/25/19 Urinary Catheter Time of Insertion: 17:11 Data : 09/28/19 04:26 09/28/19 04:26 Micro: Microbiology 09/25/19 17:24 Urine Culture - Preliminary Urine,Clean Catch Klebsiella pneumoniae Gram Negative Rods A&P Assessment and plan (1) Respiratory failure: So far remained stable on 5 L. We will transfer out of ICU. Continue treatment for pneumonia. Appreciate speech therapy assessment. Pur?ed diet nectar thick liquids at this time due to risk of aspiration. Strict aspiration precautions. 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 This appears to be improving and mentation is currently to baseline, with reported history of MR and tardive dyskinesia. Received IV levothyroxine on presentation. I am not convinced that this was myxedema coma as T4 concentration was normal. Bradycardia has resolved. Blood pressure now hypertensive. I suspect her symptoms may have been related to her medication, perhaps baclofen, and acute infection. Her blood pressure has stabilized. Wean down hydrocortisone. Status: Acute Code(s): E03.5 - Myxedema coma (3) Altered mental status: This appears to have improved. Suspect acute encephalopathy secondary to medication, as well as pneumonia, cellulitis. Status: Acute Qualifiers: Altered mental status type: coma Coma depth: [place] coma 3-8 Coma timing: in the field (EMT or ambulance) Qualified Code(s): R40.2431 - [place] coma scale score 3-8, in the field [EMT or ambulance] Code(s): R41.82 - Altered mental status, unspecified (4) CHF (congestive heart failure): Normal ejection fraction. Grade 1 diastolic dysfunction. Holding further diuretics for now. Noted moderate aortic stenosis. Status: Acute Qualifiers: Heart failure chronicity: acute Heart failure type: unspecified Qualified Code(s): I50.9 - Heart failure, unspecified Code(s): I50.9 - Heart failure, unspecified (5) Bradycardia: Heart rate improved. Status: Acute Code(s): R00.1 - Bradycardia, unspecified Additional A&P Information Moderate aortic stenosis: Noted on echocardiogram. Acute anemia: Possible chronic disease with hypothyroidism. But also Hemoccult positive. Continue PPI. Consider endoscopy on outpatient basis or prior to discharge depending on hemoglobin levels. RLE cellulitis and ulceration: continue antibiotic. Mild hypokalemia: Replaced. Functional decline, per family significantly functionally declined within the last month or so. Has been requiring significant help. Her sister has been in poor health herself. Will request for PT, OT evaluation. Would benefit from placement to SNF. Discharge planning to arrange. Attestations Medical Necessity Statement*: Continue admission for assessment management of hypoxic after failure, pneumonia. 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
[2019-09-28] MEDS: amlodipine 5 mg Tablet PO (17:34)
[2019-09-28] MEDS: hydrocortisone 100 mg/2 mL SDV 12.5 MG IVP (18:01)
[2019-09-28 20:33] LABS: Glucose Point of Care 105 mg/dL (70-110)
[2019-09-29] VITALS (7 sets, daily range): BP systolic 112–190; BP diastolic 73–110; PULSE 53–94; RESP 18–20; TEMP 36.3–36.9; O2SAT 89–90
[2019-09-29] MEDS: vancomycin 750 MG in sodium chloride 0.9% 250 ML 250 MG IV (02:31)
[2019-09-29 06:12] LABS: Basophils % 0.1 %; Eosinophils # 0.1 10^3/uL (0.0-0.8); Eosinophils % 1.1 %; Lymphocytes # 0.6 10^3/uL (0.8-4.8); Lymphocytes % 5.5 %; Mean Corpuscular HGB Conc 28.2 g/dL (30.0-36.0); Mean Corpuscular Hemoglobin 26.1 pg (28.0-34.0); Mean Corpuscular Volume 92.4 fL (81-99); Mean Platelet Volume 10.4 fL (7.4-10.4); Monocytes # 0.6 10^3/uL (0.2-0.9); Monocytes % 5.2 %; Neutrophils % 87.7 %; Nucleated Red Blood Cells % 0 %; Platelet Count 188 10^3/cmm (130-400); Red Blood Count 4.22 10^6/uL (4.1-5.3); Red Cell Distribution Width 16.2 % (12.1-15.1); White Blood Count 11.3 10^3/uL (4.0-10.0)
[2019-09-29 06:21] LABS: Glucose Point of Care 88 mg/dL (70-110)
[2019-09-29 06:32] LABS: Alanine Aminotransferase 28 U/L (0-33); Albumin Level 2.5 g/dL (3.5-5.2); Alkaline Phosphatase 126 IU/L (35-105); Aspartate Amino Transferase 29 U/L (0-32); Blood Urea Nitrogen 34 mg/dL (8-23); Calcium 8.2 mg/dL (8.5-10.5); Carbon Dioxide 22 mmol/L (22-29); Chloride 113 mmol/L (98-107); Globulin 3.8 g/dL (1.3-4.6); Glucose 94 mg/dL (65-115); Osmolality Calculated 303 mOsm/kg (285-295); Sodium 148 mmol/L (136-145); Total Bilirubin 0.4 mg/dL (0.15-1.2); Total Protein 6.3 g/dL (6.6-8.7)
[2019-09-29] MEDS: amlodipine 5 mg Tablet PO (08:52)
[2019-09-29] MEDS: metoprolol tartrate 25 mg Tablet PO ×2 (08:55→17:58)
[2019-09-29] MEDS: piperacillin-tazobactam 3.375 GM in sodium chloride 0.9% (plus) 50 ML IV ×2 (09:21→17:57)
[2019-09-29] MEDS: pantoprazole 40 mg SDV IVP ×2 (09:21→17:57)
[2019-09-29] MEDS: hydrocortisone 100 mg/2 mL SDV 12.5 MG IVP (09:22)
[2019-09-29 10:49] LABS: Glucose Point of Care 93 mg/dL (70-110)
[2019-09-29 17:04] LABS: Glucose Point of Care 118 mg/dL (70-110)
--- NOTE | 2019-09-29 20:48 | PM.PN ---
Subjective Subjective: Interval history: She denies any pain. Does not have any complaints apart from being tired. Vitals/I&O/Wt Last Vital Signs Temp 98.5 F 09/29/19 15:20 Pulse 67 09/29/19 15:20 Resp 18 09/29/19 15:20 BP 176/78 09/29/19 15:20 Pulse Ox 90 09/29/19 15:20 09/29/19 09/29/19 09/29/19 06:59 14:59 22:59 Intake Total 50 / 710 270 / 270 Output Total 450 / 1450 Balance -400 / -740 270 / 270 Weight last 48 hrs Weight 85.774 kg Weight 88.961 kg Physical Exam Const: COMMON NORMALS: no apparent distress OTHER: She is awake and alert, interactive, limited historian. HENMT: COMMON NORMALS: oropharynx normal Neck/C-Spine: COMMON NORMALS: no JVD Resp: COMMON NORMALS: normal respiratory effort AUSCULTATION: rhonchi Cardio: COMMON NORMALS: no JVD, regular rhythm, S1 normal heart sound, S2 normal heart sound and no murmurs RHYTHM: regular rhythm HEART SOUNDS: S1 normal and S2 normal GI: COMMON NORMALS: normal to inspection, nondistended, normoactive bowel sounds, soft to palpation and non-tender PALPATION: Yes soft Extremity: OTHER: Bilateral lower extremity edema below the knees. Bilateral deformity of the feet, as patient is nonambulatory. Neuro: COMMON NORMALS: moves all extremities Skin: RASHES: rashes noted (Right lower extremity anterolateral martin shallow ulceration with granulation tissue, erythema, no purulent discharge.) Urinary Catheter Management^: Luna: Cath Placed During This Visit: yes Reason for Continuing Indwelling Catheter: Accurate Measurement of Urinary Output in Critically Ill Patients Urinary Catheter Date of Insertion: 09/25/19 Urinary Catheter Time of Insertion: 17:11 Data : 09/29/19 05:49 09/29/19 05:49 Micro: Microbiology 09/25/19 17:24 Urine Culture - Preliminary Urine,Clean Catch Klebsiella pneumoniae Escherichia coli A&P Assessment and plan (1) Respiratory failure: We have adjusted her diet, however, I am still concerned about aspiration with her. She is constantly reclined, she is quite a bit of secretions, rhonchi building up in upper airway which she does not appear to always remember to cough up. Requested for flutter valve. We will assess with modified barium swallow. Continue treatment for pneumonia. Pur?ed diet nectar thick liquids at this time due to risk of aspiration. Strict aspiration precautions. 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 This appears to be improving and mentation is currently to baseline with chronic dysarthria, with reported history of MR and tardive dyskinesia. Received IV levothyroxine on presentation. I am not convinced that this was myxedema coma as T4 concentration was normal. Bradycardia has resolved. Blood pressure now hypertensive. I suspect her symptoms may have been related to her medication, perhaps baclofen, and acute infection. Her blood pressure has stabilized. Wean down hydrocortisone. Status: Acute Code(s): E03.5 - Myxedema coma (3) Altered mental status: This appears to have improved. Suspect acute encephalopathy secondary to medication, as well as pneumonia, cellulitis. Status: Acute Qualifiers: Altered mental status type: coma Coma depth: [place] coma 3-8 Coma timing: in the field (EMT or ambulance) Qualified Code(s): R40.2431 - [place] coma scale score 3-8, in the field [EMT or ambulance] Code(s): R41.82 - Altered mental status, unspecified (4) CHF (congestive heart failure): Normal ejection fraction. Grade 1 diastolic dysfunction. Holding further diuretics for now. Noted moderate aortic stenosis. Status: Acute Qualifiers: Heart failure chronicity: acute Heart failure type: unspecified Qualified Code(s): I50.9 - Heart failure, unspecified Code(s): I50.9 - Heart failure, unspecified (5) Bradycardia: Heart rate improved. Status: Acute Code(s): R00.1 - Bradycardia, unspecified Additional A&P Information Moderate aortic stenosis: Noted on echocardiogram. Acute anemia: Hemoglobin stabilized. Possible chronic disease with hypothyroidism. But also Hemoccult positive. Continue PPI. Consider endoscopy on outpatient basis or prior to discharge depending on hemoglobin levels. RLE cellulitis and ulceration: continue antibiotic. Mild hypokalemia: Replaced. Functional decline, per family significantly functionally declined within the last month or so. Has been requiring significant help. Her sister has been in poor health herself. PT, OT. Would benefit from placement to SNF. Discharge planning to arrange. DVT prophylaxis SCD only on left lower extremity due to ulceration. Attestations Medical Necessity Statement*: Continue admission for management of hypoxic respiratory failure pneumonia, concern for recurrent aspiration. 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
[2019-09-30] VITALS (7 sets, daily range): BP systolic 165–190; BP diastolic 64–105; PULSE 62–99; RESP 16–74; TEMP 36.4–37; O2SAT 86–96
--- NOTE | 2019-09-30 | FL_ITS ---
WS: [id number] Modified barium swallow, 09/30/2019 Clinical Data: Oropharyngeal dysphagia Comparison: None. Fluoroscopy time: 2.1 minutes. Findings: The patient had difficulty in initiating oral swallowing. The bolus propulsion was delayed. There wa s premature spillage with pudding and liquids. There is significant oral residue on the tongue and th e palate. There is pharyngeal residue in the piriform sinuses. There is minimal penetration. There is poor peristalsis of pudding and liquids. FL/FL barium swallow modifd [id number] Impression: 1. Difficulty in initiating oral swallowing with delayed bolus propulsion. 2. Premature spillage with oral residue on the tongue and palate. 3. Poor pharyngeal peristalsis. 4. Minimal penetration on a single swallowing.
[2019-09-30 00:36] LABS: Basophils % 0.1 %; Eosinophils # 0.1 10^3/uL (0.0-0.8); Eosinophils % 0.6 %; Lymphocytes # 0.4 10^3/uL (0.8-4.8); Lymphocytes % 3.4 %; Mean Corpuscular HGB Conc 28.9 g/dL (30.0-36.0); Mean Corpuscular Volume 89.8 fL (81-99); Mean Platelet Volume 10.4 fL (7.4-10.4); Monocytes # 0.6 10^3/uL (0.2-0.9); Monocytes % 5.5 %; Neutrophils # 9.4 10^3/uL (1.8-7.7); Neutrophils % 90.1 %; Nucleated Red Blood Cells % 0 %; Platelet Count 204 10^3/cmm (130-400); Red Blood Count 4.23 10^6/uL (4.1-5.3); White Blood Count 10.5 10^3/uL (4.0-10.0)
[2019-09-30 01:09] LABS: Vancomycin Trough 26.2 ug/mL (10-15)
[2019-09-30 01:28] LABS: Alanine Aminotransferase 26 U/L (0-33); Albumin Level 2.7 g/dL (3.5-5.2); Alkaline Phosphatase 106 IU/L (35-105); Anion Gap 19.6 (5-19); Aspartate Amino Transferase 25 U/L (0-32); Blood Urea Nitrogen 35 mg/dL (8-23); Calcium 8.9 mg/dL (8.5-10.5); Carbon Dioxide 23 mmol/L (22-29); Chloride 114 mmol/L (98-107); Globulin 3.2 g/dL (1.3-4.6); Glucose 95 mg/dL (65-115); Osmolality Calculated 313 mOsm/kg (285-295); Potassium 3.6 mmol/L (3.5-5.1); Sodium 153 mmol/L (136-145); Total Bilirubin 0.5 mg/dL (0.15-1.2); Total Protein 5.9 g/dL (6.6-8.7)
[2019-09-30] MEDS: piperacillin-tazobactam 3.375 GM in sodium chloride 0.9% (plus) 50 ML IV ×2 (02:22→09:43)
--- NOTE | 2019-09-30 03:02 | PC.PHAR ---
Pharmacokinetic dosing service Date: 09/30/19 Time: 0300 Patient: Karma Gage Floor: 276-2 Weight: 85.774 Kilograms Vancomycin single level analysis: Current dose being given: 750 mg Current dosing interval: 24 hrs Current infusion time (hrs): 1 Single level Trough Data: Trough level obtained: 26.2 mcg/ml Timing of trough - # of hrs before next dose: 0.5 Hrs Desired peak: 40 mcg/ml Desired trough: 15 mcg/ml Diagnosis: Relevant medical/social history: Cultures and sensitivities: Other labs: Estimated PK Parameters: New rate constant (adela): 0.017 hr-1 Half-life: 40.77 Hours Vd from levels: 60.04 Liters (0.7 L/kg) CLvanco= 1.021 L/hr Estimated New Dose and Interval Recommended dose: 1529.2 mg Recommended interval: 58.7 Hrs Patient response: Patient is responding to treatment [yes/no] wbc decreasing, S/SX reduced [yes/no] Renal function is stable/unstable Recommendations: Give Vancomycin 750 mg q 48 hrs. Infuse over 1 hrs Expected Cpeak: 22.2 mcg/mL Expected Ctrough: 10.0 mcg/mL AUC 0-24 /DESHAUN Data: DESHAUN 0.5 mcg/mL: AUC/DESHAUN: 734.6 DESHAUN 1.0 mcg/mL: AUC/DESHAUN: 367.3 Recommended labs and intervals: Measure Bun and Scr 3 times/week. Renal dosing of other antibiotics (review renal dosing of other medications and list guidelines here): Thank you for the consult, will continue to follow. Signature:
[2019-09-30] MEDS: hyDRALAzine 20 mg/mL INJ 1 mL 5 MG IVP (05:02)
[2019-09-30 06:55] LABS: Glucose Point of Care 99 mg/dL (70-110)
[2019-09-30] MEDS: amlodipine 5 mg Tablet PO (09:43)
[2019-09-30] MEDS: metoprolol tartrate 25 mg Tablet PO (09:43)
[2019-09-30] MEDS: pantoprazole 40 mg SDV IVP ×2 (09:43→17:50)
[2019-09-30 11:10] LABS: Glucose Point of Care 115 mg/dL (70-110)
[2019-09-30 17:15] LABS: Glucose Point of Care 93 mg/dL (70-110)
[2019-09-30] MEDS: piperacillin-tazobactam 3.375 GM in sodium chloride 0.9% (plus) 100 ML IV (17:50)
--- NOTE | 2019-09-30 21:52 | PM.PN ---
Subjective Subjective: Interval history: Today she is noted to require more oxygen. She wakes up, although appears weaker. While on oxygen mask denies shortness of breath. Denies any pain. When asked to cough, does try to cough, but not very effective. Having difficult time clearing secretions. Vitals/I&O/Wt Last Vital Signs Temp 98.6 F 09/30/19 20:00 Pulse 98 09/30/19 20:00 Resp 36 H 09/30/19 20:00 BP 186/94 09/30/19 20:00 Pulse Ox 94 09/30/19 20:00 09/30/19 09/30/19 09/30/19 06:59 14:59 22:59 Intake Total 50 / 370 120 / 120 Output Total 600 / 600 Balance -550 / -230 120 / 120 Weight last 48 hrs Weight 84.323 kg Weight 86.409 kg Weight 85.774 kg Physical Exam Const: COMMON NORMALS: no apparent distress OTHER: She is somnolent, but wakes up, interactive, limited historian. HENMT: COMMON NORMALS: oropharynx normal Neck/C-Spine: COMMON NORMALS: no JVD Resp: COMMON NORMALS: normal respiratory effort AUSCULTATION: rhonchi Cardio: COMMON NORMALS: no JVD, regular rhythm, S1 normal heart sound, S2 normal heart sound and no murmurs RHYTHM: regular rhythm HEART SOUNDS: S1 normal and S2 normal GI: COMMON NORMALS: normal to inspection, nondistended, normoactive bowel sounds, soft to palpation and non-tender PALPATION: Yes soft Extremity: OTHER: Bilateral lower extremity edema below the knees. Bilateral deformity of the feet, as patient is nonambulatory. Neuro: COMMON NORMALS: moves all extremities Skin: RASHES: rashes noted (Right lower extremity anterolateral martin shallow ulceration with granulation tissue, erythema, no purulent discharge.) Urinary Catheter Management^: Luna: Cath Placed During This Visit: yes Reason for Continuing Indwelling Catheter: Accurate Measurement of Urinary Output in Critically Ill Patients Urinary Catheter Date of Insertion: 09/25/19 Urinary Catheter Time of Insertion: 17:11 Data : 09/30/19 00:20 09/30/19 00:20 Micro: Microbiology 09/25/19 16:51 Blood Culture - Final Blood NO GROWTH AFTER 5 DAYS 09/25/19 16:45 Blood Culture - Final Blood NO GROWTH AFTER 5 DAYS 09/25/19 17:24 Urine Culture - Final Urine,Clean Catch Klebsiella pneumoniae Escherichia coli Aerococcus urinae A&P Assessment and plan (1) Respiratory failure: With worsening today, slightly more somnolent, and appears to have had pulled off nasal cannula. With desaturation. Switched over to oxygen mask with some improvement. She denies shortness of breath, denies pain. When asked to cough does follow command and at times coughing, however, not very effective, with persistent secretions and difficulty clearing. MBS done today with very high risk of aspiration, with no aspiration noted during the study, but with small penetration, as well as pooling, ineffective swallowing, with recommendation for at least pudding thick liquids if she is to continue oral diet. Discussed her condition, and findings on MBS, with risk of recurrent aspiration, recurrent difficulty with generalized weakness, ineffective cough, recurrent secretions with her sister. Attempted to reach her other sister as well, but without success. Her Sister Elizabeth agreed with concerned that she is unfortunately at risk for recurrent aspiration, and with recent progressive decline, and currently with pneumonia, with poor prognosis, and verbalized understanding unfortunately may not recover. She states that she will be discussing her condition also with her sister, and that in case of cardiopulmonary arrest they would not want her to go through CPR, and would not want her to go to intubation again. She feels this would not help long-term, and would not want her to suffer through it again. She agrees with attempt to change diet as recommended by speech therapy. Agrees to monitor her for now and in case of improvement to proceed with transfer to SNF for rehabilitation. In case of worsening we will have to revisit regarding goals of care with consideration of proceeding with hospice and comfort care. Discussed with her that unfortunately she may decline again today. Somewhat later tonight noted again with some worsening, and we had held her oral diet entirely. Flutter valve ordered, although not sure she is now able to participate. Continue treatment for pneumonia for now. Strict aspiration precautions. 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 This appears to be improving and mentation is currently to baseline with chronic dysarthria, with reported history of MR and tardive dyskinesia. Received IV levothyroxine on presentation. I am not convinced that this was myxedema coma as T4 concentration was normal. Bradycardia has resolved. Blood pressure now hypertensive. I suspect her symptoms may have been related to her medication, perhaps baclofen, and acute infection. Her blood pressure has been high. Weaned off hydrocortisone. Status: Acute Code(s): E03.5 - Myxedema coma (3) Altered mental status: This appears to have improved, but today somewhat worse again. Suspect acute encephalopathy secondary to recurrent aspiration, with pneumonia, today with some worsening hypoxia. Status: Acute Qualifiers: Altered mental status type: coma Coma depth: [place] coma 3-8 Coma timing: in the field (EMT or ambulance) Qualified Code(s): R40.2431 - [place] coma scale score 3-8, in the field [EMT or ambulance] Code(s): R41.82 - Altered mental status, unspecified (4) CHF (congestive heart failure): Normal ejection fraction. Grade 1 diastolic dysfunction. Holding further diuretics for now. Noted moderate aortic stenosis. Status: Acute Qualifiers: Heart failure chronicity: acute Heart failure type: unspecified Qualified Code(s): I50.9 - Heart failure, unspecified Code(s): I50.9 - Heart failure, unspecified (5) Bradycardia: Heart rate improved. Status: Acute Code(s): R00.1 - Bradycardia, unspecified Additional A&P Information Moderate aortic stenosis: Noted on echocardiogram. Acute anemia: Hemoglobin stabilized. Possible chronic disease with hypothyroidism. But also Hemoccult positive. Continue PPI. Consider endoscopy on outpatient basis or prior to discharge depending on hemoglobin levels. RLE cellulitis and ulceration: continue antibiotic. Mild hypokalemia: Replaced. Functional decline, per family significantly functionally declined within the last month or so. Has been requiring significant help. Her sister has been in poor health herself. PT, OT. Has been accepted to SNF, although respiratory status again worse. DVT prophylaxis SCD only on left lower extremity due to ulceration. Attestations Medical Necessity Statement*: Continue admission for management of pneumonia with recurrent aspiration. Coding Level of Care Code Acute [employer] Station Operator for [facility] Diagnoses Respiratory failure J96.01 Chronicity: acute Respiratory failure complication: hypoxia Myxedema coma E03.5 Altered mental status R40.2431 Altered mental status type: coma Coma depth: [place] coma 3-8 Coma timing: in the field (EMT or ambulance) CHF (congestive heart failure) I50.9 Heart failure chronicity: acute Heart failure type: unspecified Bradycardia R00.1
[2019-09-30 21:56] LABS: Glucose Point of Care 97 mg/dL (70-110)
[2019-09-30] MEDS: metoprolol tartrate 1 mg/1 mL SDV 5 mL 5 MG IV (22:58)
[2019-10-01] VITALS (10 sets, daily range): BP systolic 154–218; BP diastolic 62–120; PULSE 60–68; RESP 24–28; TEMP 36.6–37.2; O2SAT 89–95
[2019-10-01] MEDS: vancomycin 750 MG in sodium chloride 0.9% 250 ML 250 MG IV (02:16)
[2019-10-01] MEDS: metoprolol tartrate 1 mg/1 mL SDV 5 mL 5 MG IV (02:17)
[2019-10-01 05:44] LABS: Basophils % 0.1 %; Eosinophils # 0.1 10^3/uL (0.0-0.8); Eosinophils % 1.7 %; Hematocrit 34.7 % (37.0-47.0); Hemoglobin 9.7 g/dL (11.5-15.3); Lymphocytes # 0.3 10^3/uL (0.8-4.8); Lymphocytes % 4.7 %; Mean Corpuscular Hemoglobin 25.5 pg (28.0-34.0); Mean Corpuscular Volume 91.1 fL (81-99); Mean Platelet Volume 10.6 fL (7.4-10.4); Monocytes # 0.5 10^3/uL (0.2-0.9); Monocytes % 6.7 %; Neutrophils # 5.9 10^3/uL (1.8-7.7); Neutrophils % 86.5 %; Nucleated Red Blood Cells % 0 %; Platelet Count 201 10^3/cmm (130-400); Red Blood Count 3.81 10^6/uL (4.1-5.3); Red Cell Distribution Width 16.2 % (12.1-15.1); White Blood Count 6.9 10^3/uL (4.0-10.0)
[2019-10-01 06:04] LABS: Alanine Aminotransferase 21 U/L (0-33); Albumin Level 2.5 g/dL (3.5-5.2); Alkaline Phosphatase 97 IU/L (35-105); Anion Gap 15.2 (5-19); Aspartate Amino Transferase 20 U/L (0-32); Blood Urea Nitrogen 33 mg/dL (8-23); Calcium 8.7 mg/dL (8.5-10.5); Carbon Dioxide 27 mmol/L (22-29); Chloride 119 mmol/L (98-107); Globulin 3.4 g/dL (1.3-4.6); Glucose 84 mg/dL (65-115); Osmolality Calculated 322 mOsm/kg (285-295); Potassium 3.2 mmol/L (3.5-5.1); Sodium 158 mmol/L (136-145); Total Bilirubin 0.4 mg/dL (0.15-1.2); Total Protein 5.9 g/dL (6.6-8.7)
[2019-10-01] MEDS: piperacillin-tazobactam 3.375 GM in sodium chloride 0.9% (plus) 100 ML IV ×2 (06:07→17:03)
[2019-10-01 07:00] LABS: Glucose Point of Care 74 mg/dL (70-110)
[2019-10-01 07:00] LABS: Glucose Point of Care 74 mg/dL (70-110)
--- NOTE | 2019-10-01 08:35 | XRR_ITS ---
PROCEDURE INFORMATION: Exam: XR Chest, 1 View Exam date and time: 10/01/2019 8:59 AM Age: 84 years old Clinical indication: Dyspnea; Additional info: Hypoxia, respiratory distress TECHNIQUE: Imaging protocol: XR of the chest Views: Frontal portable semiupright view of the chest. COMPARISON: CR XR chest 1V portable [id number] 09/28/2019 5:41 AM FINDINGS: Tubes, catheters and devices: EKG leads are present overlying the chest. Lungs: The pulmonary vasculature is more congested and ill-defined. Interval increase in airspace opacities bilaterally in the mid to lower lung zones. There is interval increase in left lower lobe opacity further obscuring the left diaphragmatic and descending aortic shadows. Pleural space: Increased small right pleural effusion. No pneumothorax. A small left pleural effusion is not excluded. Heart/Mediastinum: Mediastinum: Stable. The heart is normal in size and contour. Vasculature: Mild aortic arch atherosclerotic calcification without ectasia. Bones/joints: Stable. Chronic left subcoracoid humeral dislocation redemonstrated. XR/XR chest 1V portable [id number] IMPRESSION: 1. Increased small right pleural effusion. 2. Increased pulmonary vascular congestion. 3. Increased bilateral alveolar pulmonary edema. 4. Increased left lower lobe atelectasis/consolidation.
[2019-10-01] MEDS: pantoprazole 40 mg SDV IVP ×2 (09:22→17:04)
[2019-10-01] MEDS: dextrose 50% syringe 50 mL IVP (09:22)
[2019-10-01 11:23] LABS: Glucose Point of Care 122 mg/dL (70-110)
[2019-10-01 17:06] LABS: Glucose Point of Care 91 mg/dL (70-110)
--- NOTE | 2019-10-01 19:51 | P.PN_ITS ---
Subjective Subjective: Interval history: She is still weak, today appears weaker, but responds to voice, answers questions, although very difficult to understand speech. Follows commands. Denies pain. Says that her breathing is comfortable. Vitals/I&O/Wt Last Vital Signs Temp 98.1 F 10/01/19 15:28 Pulse 65 10/01/19 15:28 Resp 26 H 10/01/19 15:28 BP 180/62 10/01/19 15:28 Pulse Ox 93 10/01/19 15:28 10/01/19 10/01/19 10/01/19 06:59 14:59 22:59 Intake Total 100 / 100 Output Total 450 / 450 200 / 200 200 / 400 Balance -450 / -225 -100 / -100 -200 / -300 Weight last 48 hrs Weight 84.051 kg Weight 84.323 kg Weight 86.409 kg Physical Exam Const: COMMON NORMALS: no apparent distress OTHER: She is somnolent, but wakes up, interactive, limited historian. HENMT: COMMON NORMALS: oropharynx normal Neck/C-Spine: COMMON NORMALS: no JVD Resp: COMMON NORMALS: normal respiratory effort AUSCULTATION: rhonchi Cardio: COMMON NORMALS: no JVD, regular rhythm, S1 normal heart sound, S2 normal heart sound and no murmurs RHYTHM: regular rhythm HEART SOUNDS: S1 normal and S2 normal GI: COMMON NORMALS: normal to inspection, nondistended, normoactive bowel sounds, soft to palpation and non-tender PALPATION: Yes soft Extremity: OTHER: Bilateral lower extremity edema below the knees. Bilateral deformity of the feet, as patient is nonambulatory. Neuro: COMMON NORMALS: moves all extremities Skin: RASHES: rashes noted (Right lower extremity anterolateral martin shallow ulceration with granulation tissue, erythema, no purulent discharge.) Urinary Catheter Management^: Luna: Cath Placed During This Visit: yes Reason for Continuing Indwelling Catheter: Accurate Measurement of Urinary Output in Critically Ill Patients Urinary Catheter Date of Insertion: 09/25/19 Urinary Catheter Time of Insertion: 17:11 Data : 10/01/19 05:22 10/01/19 05:22 Micro: Microbiology 09/25/19 16:51 Blood Culture - Final Blood NO GROWTH AFTER 5 DAYS 09/25/19 16:45 Blood Culture - Final Blood NO GROWTH AFTER 5 DAYS A&P Assessment and plan (1) Respiratory failure: She has unfortunately been declining, with generalized weakness, with cough on request, but not effective. She was changed to n.p.o. yesterday, and continues n.p.o. today. She does wake up, follows commands, attempts to answer questions, although very difficult to understand with worsening of chronic dysarthria with her generalized weakness. She does deny subjective shortness of breath. She has chronic lower extremity edema. Chest x-ray this morning with appearance of congestive changes, but she is at the same time hypernatremic, which I suspect is likely contributing to her generalized weakness. Mucous membranes are dry. Skin turgor is decreased. Assessment of volume status is difficult in her case. I do suspect that she is rather intravascularly depleted. We will give her 500 cc of D5W with potassium as she is hypokalemic. We will check magnesium, phosphorus. Requested flutter valve. MBS with very high risk of aspiration, with no aspiration noted during the study, but with small penetration, as well as pooling, ineffective swallowing, with recommendation for at least pudding thick liquids if she is to continue oral diet. Discussed her condition, and findings on MBS, with risk of recurrent aspiration, recurrent difficulty with generalized weakness, ineffective cough, recurrent secretions with her sister. She agrees with limited attempts to see if supportive care can help her recover from generalized weakness and regain more control of her swallowing, otherwise we may have no choice but to proceed with hospice/comfort care. For now continues n.p.o. We will give gentle hydration as above. Attempt to change diet as recommended by speech therapy if becomes a little bit stronger. Continue treatment for pneumonia for now. Strict aspiration precautions. One-to-one sitter has been needed to prevent pulling of oxygen mask with occasional moments of confusion. 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 This appears to be improving and mentation is currently to baseline with chronic dysarthria, with reported history of MR and tardive dyskinesia. Received IV levothyroxine on presentation. I am doubtful that this was myxedema coma as T4 concentration was normal. I suspect her symptoms may have been related to her medication, perhaps baclofen, and acute infection. Will recheck thyroid function. Her blood pressure has been high. Weaned off hydrocortisone. Status: Acute Code(s): E03.5 - Myxedema coma (3) Altered mental status: Mental status is worse, although she appears close to baseline with some lucidity, although generally weak, and perhaps with moments of confusion. Difficult to understand due to worsening dysarthria with weakness, dry mouth. Requested moist sponges, will give her slow hydration of 500 cc of D5W due to h ypernatremia. Recheck thyroid functions. Suspect acute encephalopathy secondary to recurrent aspiration, with pneumonia, today with some worsening hypoxia. Status: Acute Qualifiers: Altered mental status type: coma Coma depth: [place] coma 3-8 Coma timing: in the field (EMT or ambulance) Qualified Code(s): R40.2431 - [place] coma scale score 3-8, in the field [EMT or ambulance] Code(s): R41.82 - Altered mental status, unspecified (4) CHF (congestive heart failure): Normal ejection fraction. Grade 1 diastolic dysfunction. Holding further diuretics for now. Noted moderate aortic stenosis. Status: Acute Qualifiers: Heart failure chronicity: acute Heart failure type: unspecified Qualified Code(s): I50.9 - Heart failure, unspecified Code(s): I50.9 - Heart failure, unspecified (5) Bradycardia: Heart rate improved. Status: Acute Code(s): R00.1 - Bradycardia, unspecified Additional A&P Information Moderate aortic stenosis: Noted on echocardiogram. Acute anemia: Hemoglobin stabilized. Possible chronic disease with hypothyroidism. But also Hemoccult positive. Continue PPI. Consider endoscopy on outpatient basis or prior to discharge depending on hemoglobin levels. RLE cellulitis and ulceration: continue antibiotic. Dressing changes with Hydrofera Blue, ABD pad. Mild hypokalemia: Replace. Functional decline, per family significantly functionally declined within the last month or so. Has been requiring significant help. Her sister has been in poor health herself. PT, OT. Has been accepted to SNF, although respiratory status again worse. DVT prophylaxis SCD only on left lower extremity due to ulceration. Attestations Medical Necessity Statement*: Continue admission for treatment of pneumonia, recurrent aspiration, encephalopathy with generalized weakness. Functional decline. Coding Level of Care Code Acute Title Department Manager for [facility] Diagnoses Respiratory failure J96.01 Chronicity: acute Respiratory failure complication: hypoxia Myxedema coma E03.5 Altered mental status R40.2431 Altered mental status type: coma Coma depth: [place] coma 3-8 Coma timing: in the field (EMT or ambulance) CHF (congestive heart failure) I50.9 Heart failure chronicity: acute Heart failure type: unspecified Bradycardia R00.1
[2019-10-01 21:06] LABS: Glucose Point of Care 81 mg/dL (70-110)
[2019-10-02] VITALS (8 sets, daily range): BP systolic 148–211; BP diastolic 67–88; PULSE 60–77; RESP 18–25; TEMP 36.3–37; O2SAT 84–94
[2019-10-02] MEDS: piperacillin-tazobactam 3.375 GM in sodium chloride 0.9% (plus) 100 ML IV ×2 (01:58→09:30)
--- NOTE | 2019-10-02 06:05 | PC.NURSE ---
Gave patient a bath and changed linens during rounds.
[2019-10-02 06:24] LABS: Basophils % 0.4 %; Eosinophils # 0.1 10^3/uL (0.0-0.8); Eosinophils % 1.9 %; Hematocrit 39.3 % (37.0-47.0); Hemoglobin 10.8 g/dL (11.5-15.3); Lymphocytes # 0.3 10^3/uL (0.8-4.8); Mean Corpuscular HGB Conc 27.5 g/dL (30.0-36.0); Mean Corpuscular Hemoglobin 26.9 pg (28.0-34.0); Mean Corpuscular Volume 97.8 fL (81-99); Mean Platelet Volume 10.6 fL (7.4-10.4); Monocytes # 0.4 10^3/uL (0.2-0.9); Monocytes % 6.3 %; Neutrophils # 4.9 10^3/uL (1.8-7.7); Nucleated Red Blood Cells % 0 %; Platelet Count 221 10^3/cmm (130-400); Red Blood Count 4.02 10^6/uL (4.1-5.3); Red Cell Distribution Width 16.1 % (12.1-15.1); White Blood Count 5.7 10^3/uL (4.0-10.0)
[2019-10-02 06:41] LABS: Magnesium 2.4 mg/dL (1.7-2.3); Phosphorus 2.9 mg/dL (2.5-4.5)
[2019-10-02 06:54] LABS: Alanine Aminotransferase 20 U/L (0-33); Albumin Level 2.7 g/dL (3.5-5.2); Alkaline Phosphatase 91 IU/L (35-105); Anion Gap 14.2 (5-19); Aspartate Amino Transferase 19 U/L (0-32); Blood Urea Nitrogen 33 mg/dL (8-23); Calcium 8.7 mg/dL (8.5-10.5); Carbon Dioxide 29 mmol/L (22-29); Chloride 119 mmol/L (98-107); Free T4 Free Thyroxine 0.81 ng/dL (0.82-1.77); Globulin 3.1 g/dL (1.3-4.6); Glucose 109 mg/dL (65-115); Osmolality Calculated 326 mOsm/kg (285-295); Potassium 3.2 mmol/L (3.5-5.1); Sodium 159 mmol/L (136-145); Total Bilirubin 0.3 mg/dL (0.15-1.2); Total Protein 5.8 g/dL (6.6-8.7)
[2019-10-02 06:55] LABS: Thyroid Stimulating Hormone 5.46 uIU/mL (0.27-4.20)
[2019-10-02 06:56] LABS: Glucose Point of Care 100 mg/dL (70-110)
[2019-10-02] MEDS: levothyroxine 100 mcg SDV 25 MCG IVP (09:24)
[2019-10-02] MEDS: pantoprazole 40 mg SDV IVP (09:27)
--- NOTE | 2019-10-02 10:12 | PC.NURSE ---
no scale on bed
[2019-10-02 11:02] LABS: Glucose Point of Care 90 mg/dL (70-110)
[2019-10-02] MEDS: dextrose 5% 1,000 ML 50 ML IV (14:32)
--- NOTE | 2019-10-02 14:50 | PC.NURSE ---
Upon entering room, patient respiration rate 30 per minute and oxygen saturation 80% on 10 L oxymask. Patient placed on non-rebreather. O2 saturations reached 85%. Dr. Pineda notified of patient condition. Family requests comfort measures only for patient.
--- NOTE | 2019-10-02 20:09 | P.PN_ITS ---
Subjective Subjective: Interval history: This morning she is very weak, does wake up, however, with how weak she is it is not possible to understand what she is trying to say. Ineffective cough. Vitals/I&O/Wt Last Vital Signs Temp 98.3 F 10/02/19 11:04 Pulse 63 10/02/19 12:17 Resp 18 10/02/19 12:17 BP 148/67 10/02/19 11:04 Pulse Ox 86 L 10/02/19 12:17 10/02/19 10/02/19 10/02/19 06:59 14:59 22:59 Intake Total 538 / 538 Output Total 425 / 825 Balance -425 / -625 538 / 538 Weight last 48 hrs Weight 0 g Weight 84.051 kg Physical Exam Const: COMMON NORMALS: no apparent distress OTHER: She is somnolent, but wakes up, very weak. With significant rhonchi, when asked does try to cough, however, ineffectively. HENMT: COMMON NORMALS: oropharynx normal Neck/C-Spine: COMMON NORMALS: no JVD Resp: COMMON NORMALS: normal respiratory effort AUSCULTATION: rhonchi Cardio: COMMON NORMALS: no JVD, regular rhythm, S1 normal heart sound, S2 normal heart sound and no murmurs RHYTHM: regular rhythm HEART SOUNDS: S1 normal and S2 normal GI: COMMON NORMALS: normal to inspection, nondistended, normoactive bowel sounds, soft to palpation and non-tender PALPATION: Yes soft Extremity: OTHER: Bilateral lower extremity edema below the knees. Bilateral deformity of the feet, as patient is nonambulatory. Neuro: COMMON NORMALS: moves all extremities Skin: RASHES: rashes noted (Right lower extremity anterolateral martin shallow ulceration with granulation tissue, erythema, no purulent discharge.) Urinary Catheter Management^: Luna: Cath Placed During This Visit: yes Reason for Continuing Indwelling Catheter: Required Immobilization for Trauma or Surgery or Anesthesia Urinary Catheter Date of Insertion: 09/25/19 Urinary Catheter Time of Insertion: 17:11 Data : 10/02/19 06:11 10/02/19 06:11 A&P Assessment and plan (1) Respiratory failure: Unfortunately continually slowly declining, with saturation today down into the 80s despite nonrebreather. Persistent respiratory secretions which she is not clearing. Receiving intermittent suctioning. Discussing goals of care with her sisters, it would not be her preference to pursue additional aggressive interventions, or alternative feeding strategies like feeding tube. This afternoon she had declined significantly, with more lethargy, although did wake up again later by early evening. On discussion of her overall condition, prognosis, and lack of improvement decision is made with her family for transition to comfort care so as not to prolong her suffering. She has unfortunately been declining, with generalized weakness, with cough on request, but not effective. She was changed to n.p.o. yesterday. She does wake up, follows commands, attempts to answer questions, although very difficult to understand with worsening of chronic dysarthria with her generalized weakness. MBS with very high risk of aspiration, with no aspiration noted during the study, but with small penetration, as well as pooling, ineffective swallowing, with recommendation for at least pudding thick liquids if she is to continue oral diet. Strict aspiration precautions. 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 He received IV levothyroxine. Acute encephalopathy on presentation. Chronic dysarthria, with reported history of MR and tardive dyskinesia. T4 concentration was normal on presentation. I suspect her symptoms may have been related to her medication, perhaps baclofen, and acute infection. Her blood pressure has been high. Was weaned off hydrocortisone. Status: Acute Code(s): E03.5 - Myxedema coma (3) Altered mental status: Mental status is worse, although she appears close to baseline with some lucidity, although generally weak, and perhaps with moments of confusion. Difficult to understand due to worsening dysarthria with weakness, dry mouth. Suspect acute encephalopathy secondary to recurrent aspiration, with pneumonia, worsening hypoxia. Status: Acute Qualifiers: Altered mental status type: coma Coma depth: [place] coma 3-8 Coma timing: in the field (EMT or ambulance) Qualified Code(s): R40.2431 - [place] coma scale score 3-8, in the field [EMT or ambulance] Code(s): R41.82 - Altered mental status, unspecified (4) CHF (congestive heart failure): Normal ejection fraction. Grade 1 diastolic dysfunction. Diuretics were held, with worsening hypernatremia, still with persistent peripheral edema. Congestive changes on chest x-ray. Noted moderate aortic stenosis. Status: Acute Qualifiers: Heart failure chronicity: acute Heart failure type: unspecified Qualified Code(s): I50.9 - Heart failure, unspecified Code(s): I50.9 - Heart failure, unspecified (5) Bradycardia: Heart rate in the 60s. Status: Acute Code(s): R00.1 - Bradycardia, unspecified Additional A&P Information Moderate aortic stenosis: Noted on echocardiogram. Acute anemia: Hemoglobin stabilized. Hemoccult positive. RLE cellulitis and ulceration: continue antibiotic. Dressing changes with Hydrofera Blue, ABD pad. Mild hypokalemia: Replace. Functional decline, per family significantly functionally declined within the last month or so. Has been requiring significant help. Her sister has been in poor health herself. Initial plans were for placement to SNF. DVT prophylaxis SCD only on left lower extremity due to ulceration. Attestations Medical Necessity Statement*: Continue admission for transition to comfort care and end-of-life measures. Coding Level of Care Code Acute Assistant Corporate Secretary for Bianca Armenta Diagnoses Respiratory failure J96.01 Chronicity: acute Respiratory failure complication: hypoxia Myxedema coma E03.5 Altered mental status R40.2431 Altered mental status type: coma Coma depth: [place] coma 3-8 Coma timing: in the field (EMT or ambulance) CHF (congestive heart failure) I50.9 Heart failure chronicity: acute Heart failure type: unspecified Bradycardia R00.1
[2019-10-03 01:10] VITALS: RESP 26
--- NOTE | 2019-10-03 01:12 | PC.NURSE ---
pt with air hungar and shakes head when asked if in pain unable to determine what pt saying. given liq morphine 5mg.
[2019-10-03 05:58] VITALS: RESP 27
--- NOTE | 2019-10-03 07:08 | PC.OT ---
OT NOTE: PATIENT IS BEING TRANSFERRED TO COMFORT CARE, DISCHARGE SKILLED OT
[2019-10-03 07:58] VITALS: PULSE 45; O2SAT 78
--- NOTE | 2019-10-03 10:42 | PC.NURSE ---
Patient placed on nasal cannula at 6 LPM per physician's verbal order.
--- NOTE | 2019-10-03 13:24 | PC.NURSE ---
Family notified nurse of no respirations. Two nurses confirmed no respirations or apical pulse. Time of 1300. Physician notified. Niece at bedside, more family on the way.
--- NOTE | 2019-10-03 15:14 | P.DES_ITS ---
Discharge Providers DDS Date of Admission: 09/25/19 19:34 Date Summary Completed: 10/03/19 Attending Provider at Admission: Gennaro Palumbo MD Time of : 13:00 Attending Provider at Discharge: Suzie Boo MD Primary Care Provider: DORA Smith Diagnoses Hospital Diagnoses (1) Respiratory failure: Qualifiers: Chronicity: acute Respiratory failure complication: hypoxia Qualified Code(s): J96.01 - Acute respiratory failure with hypoxia (2) Myxedema coma: (3) Altered mental status: Qualifiers: Altered mental status type: coma Coma depth: [place] coma 3-8 Coma timing: in the field (EMT or ambulance) Qualified Code(s): R40.2431 - [place] coma scale score 3-8, in the field [EMT or ambulance] (4) CHF (congestive heart failure): Qualifiers: Heart failure chronicity: acute Heart failure type: unspecified Qualified Code(s): I50.9 - Heart failure, unspecified (5) Bradycardia: Reason for Visit Reason for Visit: Reason For Visit: resp distress Summary Date and Time of : Date of : 10/03/19 Time of : 13:00 Summary: Summary: 84 year old female who was brought in by the family for chief complaint of shortness of breath, altered mental status on 09/24. As per the family she was in her usual state of health until day of admission when she seemed confused and was struggling to breathe at that time EMS was called, because of her respiratory distress she was intubated. Eventually weaned off ventilator with treatment of pneumonia, suspected aspiration. Initially improving, however, after extubation with persistent airway secretions/aspiration which she cannot clear, with ineffective cough. Continuously declining respiratory status, and recently with functional decline, prior to admission. Multiple goals of care discussions held with family, then when she was desaturating even on nonrebreather, transitioned her to comfort care. She eventually passed with comfort measures this afternoon. Additional Data: Advance directives?: No Discharge Plan Discharge Patient Disposition: Condition: Prescriptions: No Action potassium chloride 10 mEq capsule, extended release 10 meq PO DAILY RF: 0 atorvastatin 10 mg tablet See Rx Instructions .ROUTE .COMPLEX RF: 0 baclofen 10 mg tablet 10 mg PO BID RF: 0 docusate sodium [DOK] 100 mg capsule 100 mg PO DAILY PRN (Reason: Constipation) RF: 0 furosemide 20 mg tablet 20 mg PO BID RF: 0 lisinopril 40 mg tablet 40 mg PO DAILY RF: 0 metoprolol tartrate 25 mg tablet 25 mg PO BID RF: 0 Dandelion Root 1 tab PO DAILY RF: 0 Vitamin C 1 tab PO DAILY RF: 0 Referrals: [facility] [Outside] Andrew Rascon MD [Physician] - 2 weeks (To schedule EGD and colonoscopy) Discharge Date/Time: 10/03/19 16:13 DS Attestations Time Spent in /Discharge Care*: less than 30 min Quality - AMI: AMI present?: No Quality - Stroke: CVA present?: No Symptom Onset Unknown: No Quality - VTE: VTE present?: No Deep Vein Thrombosis/Pulmonary Embolism P resent on Admission: No Coding Level of Care Code Acute Consulting Senior Practice Director for g [employer] Diagnoses Respiratory failure J96.01 Chronicity: acute Respiratory failure complication: hypoxia Myxedema coma E03.5 Altered mental status R40.2431 Altered mental status type: coma Coma depth: [place] coma 3-8 Coma timing: in the field (EMT or ambulance) CHF (congestive heart failure) I50.9 Heart failure chronicity: acute Heart failure type: unspecified Bradycardia R00.1
== END 2019-10-03 16:13 | disposition expired | DRG 208 ==
LOC: ER 17:28 → ICU 20:02 → MEDSURG 09-28 17:18
PROVIDERS: Internal Medicine; Admitting Provider Internal Medicine; Emergency Provider Emergency Medicine; Family Provider Nurse Practitioner; PCP Nurse Practitioner; Visit Provider Student in an Organized Health Care Education/Training Program
DX: J96.01 Acute respiratory failure with hypoxia (principal); E03.5 Myxedema coma; J18.9 Pneumonia, unspecified organism; K92.2 Gastrointestinal hemorrhage, unspecified; E87.0 Hyperosmolality and hypernatremia; D62 Acute posthemorrhagic anemia; G93.40 Encephalopathy, unspecified; L03.115 Cellulitis of right lower limb; L97.919 Non-pressure chronic ulcer of unspecified part of right lower leg with unspecified severity; I50.9 Heart failure, unspecified; T68.XXXA Hypothermia, initial encounter; I95.9 Hypotension, unspecified; R40.2431 Glasgow coma scale score 3-8, in the field [EMT or ambulance]; I48.91 Unspecified atrial fibrillation; E87.6 Hypokalemia; I35.0 Nonrheumatic aortic (valve) stenosis; Z51.5 Encounter for palliative care; Z79.899 Other long term (current) drug therapy; Z79.811 Long term (current) use of aromatase inhibitors
CPT/HCPCS: 12345; 36415; 36416; 36430; 36600; 51702; 70450; 71045; 73562; 74176; 74230; 80053; 80202; 80307; 81001; 82009; 82140; 82533; 82550; 82803; 82962; 82977; 83605; 83735; 83880; 84100; 84295; 84439; 84443; 84484; 85018; 85025; 85610; 86850; 86900; 86920; 87040; 87077; 87086; 87186; 87804; 92610; 92611; 93005; 93306; 94002; 94003; 94799; 96375; 97110; 97161; 97165; 97530; 99284; C9113; J0360; J1720; J1940; J2543; J3010; J3370; J3480; J3490; J7030; J7050; P9016